=== PATIENT | male | born 1970 | race Caucasian/White ===

== ENCOUNTER 2017-12-03 17:53 | Inpatient (IN) | payer OTHER ==
[~2017-12-03] VITALS: Ht 185.4 cm; Wt 108.0 kg
[2017-12-03 21:48] VITALS: O2SAT 94; Ht 185.4 cm; Wt 108.0 kg
[2017-12-03 22:26] VITALS: BP 123/81; PULSE 100; TEMP 36.7; O2SAT 98
[2017-12-03] MEDS ORDERED: HYDROmorphone INJ 1 MG/ML SYR IV PRN (22:45)
[2017-12-03] MEDS ORDERED: VANCOMYCIN CONSULT ACTIVE PRN (23:00)
[2017-12-03] MEDS ORDERED: PATIENT'S ALLERGY INFO NEEDS ENTERED SCH (23:00)
[2017-12-03] MEDS ORDERED: PIPERACILL/TAZOBAC CONSULT ACTIVE PRN (23:00)
[2017-12-03] MEDS: NSS + 20MEQ KCL 1000ML 1,000 ML IV SCH (23:33)
[2017-12-03 23:37] VITALS: BP 147/86; PULSE 109; TEMP 36.4; O2SAT 99
--- NOTE | 2017-12-03 23:39 | History and Physical ---
History & Physical Date & Time of Service: Dec 03, 2017 at 23:39 Chief Complaint: Altered Mental Status Primary Care Physician: No Doctor, Assigned History of Present Illness Source: patient, hospital records Patient is a 47-year-old male with a significant past medical history of ADHD, anxiety, GERD, hypertension, hyperlipidemia, spinal stenosis, and tinnitus who presents to our facility [place] [facility] Per records that do voice, the patient underwent workup for altered mental status status post lumbar laminectomy with fusion performed 4 days ago at their facility by Dr. Mock. Patient reports that since his surgery he has had increasing pain in his lower back as well as to the LEFT hip. He reports that during his stay, his pain was ignored by multiple staff members and actually during one interaction, he contacted the ER to try and receive further care. I was unable to obtained prior records as to his admission during spinal surgery. Regardless, the patient had presented to the [facility] emergency department earlier today for increasing weakness, confusion, and worsening pain to the lumbar spine area. Per urgency department records, the patient presented afebrile. He was thought to be somewhat confused. He had a normal neurological exam per records. A CT of the head demonstrated a small LEFT frontal white matter hypodensity. CT of the abdomen was unremarkable. CT lumbar spine demonstrated no discerning fluid collections status post L4/5 fusion with L4 laminectomy. He had no leukocytosis. He was not overtly anemic. He had no significant electrolyte derangement. An ammonia level was well within normal limits. ABG was unremarkable. He was not hypoglycemic. Lactic acid was not elevated. Flu was negative. Urinalysis was unremarkable. Patient did have an elevated CRP of greater than 33. Cardiac indices and EKG were found to be unremarkable as well. Patient was placed on broad-spectrum antibiotics, specifically vancomycin and Zosyn while in the emergency department. There was apparently no beds at their facility so the patient was subsequently transferred to [facility] for further evaluation and management of altered mental status status post surgery. On evaluation in room 287-2, the patient is awake, alert, and oriented. He is complaining of pain in his low back. He reports that he has not eaten or drank much over the last few days as he has been very uncomfortable. He reports that he has had body aches and a subjective fever. He's had no cough or nasal congestion. There is been no vomiting or abdominal pain. He denies any loss of control bowel/bladder saddle anesthesia. The patient reports that he was informed that this was a "better hospital" and we should be able to take care of his pain and the "infection in my back". He offers no complaints of chest pain, palpitations, shortness of breath, pleuritic pain, hematuria, or dysuria. Patient denies any smoking or alcohol use. He denies any illicit drug use. He is currently unemployed and lives with family. Past Medical/Surgical History GERD ADHD Anxiety Hypertension Hyperlipidemia Spinal stenosis Tinnitus Status post laminectomy with fusion of the lumbar spine Family History Father: Lung Cancer Mother: Diabetes Mellitus, Hypertension Social History Smoking Status: Never Smoker Smokeless Tobacco Use: No Alcohol Use: none Drug Use: none Marital Status: Housing status: lives with family Occupational Status: unemployed Immunizations History of Influenza Vaccine: Unknown History of Tetanus Vaccine?: Unknown History of Pneumococcal: Unknown History of Hepatitis B Vaccine: Unknown Allergies Coded Allergies: Erythromycin (Verified Allergy, Mild, GI SYMPTOMS, 12/03/17) Omeprazole (Verified Allergy, Mild, GI SYMPTOMS, 12/03/17) Trazodone (Verified Allergy, Mild, GI SYMPTOMS, 12/03/17) Ziprasidone (Verified Allergy, Mild, GI SYMPTOMS, 12/03/17) Home Medications Scheduled Atorvastatin (Lipitor), 10 MG PO DAILY Gabapentin (Gabapentin), 300 MG PO TID Metoprolol Tartrate (Lopressor) (Lopressor), 100 MG PO BID Oxycodone HCl (Oxycodone HCl), 5-10 MG PO q4-6 Venlafaxine Hcl (Venlafaxine Extended Rel), 1 CAP PO DAILY Scheduled PRN Clonazepam (Klonopin), 1 MG PO BID PRN for Anxiety/Agitation Cyclobenzaprine Hcl (Flexeril), 1 TAB PO TID PRN for Muscle Spasms Ranitidine (Zantac), 300 MG PO DAILY PRN for Indigestion Review of Systems A complete 10-point Review of Systems was discussed with the patient, with pertinent positives and negatives listed in the History of Present Illness. All remaining Review of Systems questions can be considered negative unless otherwise specified. Physical Exam Vital Signs Date Time Temp Pulse Resp B/P (MAP) Pulse Ox O2 Delivery O2 Flow Rate FiO2 12/03/17 22:26 36.7 100 18 123/81 (95) 98 Room Air 12/03/17 21:48 94 Room Air VITAL SIGNS - Vital signs and nursing notes were reviewed. GENERAL - 47-year-old male appearing his stated age and in noticeable discomfort throughout the exam. SKIN - Without rashes. Surgical incision site noted to the midline of the lumbar spine. Mild serosanguineous drainage without purulence or blood noted. No surrounding erythema or ecchymosis noted on exam. Jasmyn intact. HEAD - NC/AT. EYES - PERRL with EOMI bilaterally. Sclera anicteric. Palpebral conjunctiva pink and moist with no injection noted. EARS - No deformities of external structures noted on gross examination bilaterally. No pain elicited with palpation of the tragus bilaterally. External auditory canals without discharge or otorrhea. Tympanic membranes pearly cotton without retraction or bulging. No fluid or purulent material visualized behind the TM. Handle of malleus, umbo, cone of light, pars tensa/ flaccid all easily visualized. NOSE - Midline and without cyanosis. No epistaxis or purulent drainage noted. Septum midline without deviation or septal hematoma noted. MOUTH/OROPHARYNX - Without perioral cyanosis. Buccal mucosa pink and moist and without leukoplakia. Tongue midline with equal elevation of palate bilaterally. NECK - Neck with FROM. Supple to palpation. No lymphadenopathy noted. No nuchal rigidity. ABDOMEN - Abdominal contour obese without pulsations or visible masses. BS normoactive all four quadrants. No tenderness, palpable masses, hepatosplenomegaly, or ascites noted. LUNGS - Chest wall symmetric without accessory muscle use, intercostals retractions, or central cyanosis. Normal vesicular breath sounds CTA B/L. No wheezes, rales, or rhonchi appreciated. CARDIAC - RRR with S1/S2. No murmur, rubs, or gallops appreciated. MUSCULOSKELETAL - Surgical incision site noted to the lumbar spine as described above. ROM of the lumbar spine region was limited secondary to patient discomfort. Pt was seated on the exam table. Pt made guarded movements when asked to change position. No step-off deformities were palpated down the thoracolumbar spines. Moderate Tenderness to Palpation experienced at the level of the lumbar spine and paraspinal muscle distribution. Moderate subjective reproducible tenderness to palpation across the iliac spine. SENSORY: Spinothalamic tract was found to be intact with ability to discriminate sharp versus dull sensation at the level of hip joint down do the great toe. No sensory defects of the dorsal column were appreciated utilizing light touch for evaluation. CEREBELLAR: Pt able to perform rapid alternating movements of the feet. EXTREMITIES - Range of Motion - No tremors, ticks, or fasciculations of the lower extremities noticed during inspection. Pt had +4/5 strength appreciated bilaterally in the lower extremities against examiner's resistance. VASCULAR - Capillary refill of the great toe was brisk. No mottling or blanching of the extremities present. +3/5 dorsalis pedis pulses palpated bilaterally. NEUROLOGIC - Cranial nerves II through XII grossly intact. Sensory intact to light touch throughout. PSYCH - A&Ox3 and cooperates fully with examiner. Pt is very pleasant and interacts well with examiner. Diagnostics Laboratory Results Results Past 24 Hours Test 12/03/17 22:32 12/03/17 23:22 Range/Units Microbiology Results 12/03/17 Blood Culture, Ordered Pending 12/03/17 Blood Culture, Ordered Pending Diagnostic Radiology Imaging reports [place] [facility] were reviewed by myself. Please see records. EKG From outside facility demonstrates normal sinus rhythm at a rate of 90 beats for minute. No acute ST or T-wave abnormalities noted. QTC 390 ms. Interpreted by myself. Normal EKG Impression Assessment and Plan (1) Low back pain (2) Anxiety (3) Altered mental status 47-year-old male presenting in transfer from [facility] for possible altered mental status, status post L4 laminectomy with L4-5 fusion. Concerns for postoperative infection as well as possible other contributing factors including CVA, drug ingestion, amongst others. Altered Mental Status: * Patient with essentially unremarkable workup at [facility]. Afebrile and presentation. Extensive evaluation including evaluation for sepsis and possible underlying postoperative infection. No acute findings noted. * Patient awake, alert, and oriented on presentation. * Fixated on pain control. * Will evaluate from a laboratory standpoint including metabolic sources nor other significant derangements. * CT of the head from outpatient facility does demonstrate a small area of white matter change on the LEFT frontal lobe. * Will evaluate further with MRI. * No focal neurological deficits on exam. * Awake, alert, and appropriate. * After evaluation, I did provide the patient with a one-time dose of Dilaudid intravenously for pain. During this assessment, the patient began to your health nurse and threatened to contact security. He reports that he did have pain medication in his bag which he was threatening to take. I was summoned to the room. At this point, I did explain to the patient that he would be provided pain medication, however threatening staff would not be tolerated. He was provided a one-time dose of Ativan 1 mg. He has when necessary pain medication. He will be provided Toradol and Tylenol [id number]. Post-Operative Lumbar Pain: * Status post L4 laminectomy with L4-5 fusion. * Oxycodone when necessary. * Scheduled Tylenol and Toradol. * In the setting of recent surgery with increasing pain, will cover for infection: * Vancomycin/Zosyn * Will assess with lumbar MRI for further evaluation of postoperative pain. * Will consult patient's surgeon for further evaluation. DVT Prophylaxis: * Lovenox BID. Attending addendum: I have physically seen this patient, have supervised the medical residents activities, and agree with the H&P unless as otherwise noted. Assessment and Plan: Altered mental status-- Patient referred from [facility]. Order MRI of brain as noted above has follow-up to findings on CT. Upon arrival at [facility] does not appear altered. His primary issue that he was concerned about was that of pain control regarding low back pain from recent lumbar surgery by performed at [facility]. We will consult his lumbar spine surgeon Dr. Mock We will consult neurology regarding mental status. Pain management as noted above Advanced Directives Existing Living Will: No Existing Power of Modeler: No Resuscitation Status FULL RESUSCITATION VTE Prophylaxis VTE Risk Assessment Done? Y/N: Yes Risk Level: Moderate Given or contraindicated: Enoxaparin (Lovenox)SQ Problem Qualifiers (1) Low back pain: Chronicity: acute
[2017-12-03 23:55] LABS: BASO % 0.2 %; BASO ABS # 0.01 K/uL (0-0.2); EOS ABS # 0.18 K/uL (0-0.5); HEMATOCRIT 30.7 % (42-52); HEMOGLOBIN 10.3 g/dL (14.0-18.0); IG# 0.09 K/uL (0.00-0.02); LYMPH ABS # 1.46 K/uL (1.2-3.4); MEAN CELL VOLUME 84.1 fL (80-100); MEAN CORPUSCULAR HEMOGLOBIN 28.2 pg (25-34); MEAN CORPUSCULAR HGB CONC 33.6 g/dl (32-36); MEAN PLATELET VOLUME 9.2 fL (7.4-10.4); MONO % 7.9 %; MONO ABS # 0.48 K/uL (0.11-0.59); NEUT % 63.4 %; NEUT ABS # 3.86 K/uL (1.4-6.5); PLATELET COUNT 172 K/uL (130-400); RED CELL DISTRIBUTION WIDTH CV 13.8 % (11.5-14.5); RED CELL DISTRIBUTION WIDTH SD 42.4 fL (36.4-46.3); WHITE BLOOD COUNT 6.08 K/uL (4.8-10.8)
[2017-12-03] MEDS ORDERED: HYDROmorphone INJ 1 MG/ML SYR ONE (23:57)
[2017-12-04] MEDS ORDERED: OXYCODONE HCL IR 5 MG TAB (IMMEDIATE RELEASE) PO PRN
[2017-12-04] MEDS ORDERED: PIPERACILL/TAZOBAC IV 3.375 GM in DEXTROSE 5% 100ML IV ONE (00:15)
[2017-12-04 00:16] LABS: ALBUMIN 2.6 gm/dl (3.4-5.0); CALCIUM 8.5 mg/dl (8.5-10.1); CREATININE 0.69 mg/dl (0.60-1.40); POTASSIUM 3.8 mmol/L (3.5-5.1)
[2017-12-04 00:25] LABS: PHOSPHORUS 2.7 mg/dl (2.5-4.9); TOTAL PROTEIN 6.9 gm/dl (6.4-8.2)
[2017-12-04] MEDS ORDERED: VANCOMYCIN INJ 2,500 MG in SODIUM CHLORIDE 0.9% 500ML 500 ML IV SCH (00:30)
[2017-12-04] MEDS ORDERED: LORAZEPAM INJ 1 MG in SYRINGE 0.5 ML IV STA (00:33)
[2017-12-04] MEDS ORDERED: LORAZEPAM 2 MG/ML 1 ML VIAL ONE (00:38)
[2017-12-04] MEDS: KETOROLAC TROMETHAMINE 30 MG/ML VIAL IV PRN ×3 (00:44→17:55)
[2017-12-04 04:03] VITALS: BP 115/60; PULSE 114; TEMP 36.5; O2SAT 98
[2017-12-04 04:06] LABS: INFLUENZA A PCR Neg for Influ A (NEG); INFLUENZA B PCR Neg for Influ B (NEG)
[2017-12-04] MEDS: ACETAMINOPHEN 325 MG TAB PO PRN (05:39)
[2017-12-04] MEDS ORDERED: PIPERACILL/TAZOBAC IV 3.375 GM in DEXTROSE 5% 100ML IV SCH (06:00)
[2017-12-04] MEDS ORDERED: PIPERACILL/TAZOBAC IV 3.375 GM in DEXTROSE 5% 100ML 100 ML IV SCH (06:00)
[2017-12-04 07:46] VITALS: BP 153/82; PULSE 119; TEMP 36.6; O2SAT 92
[2017-12-04] MEDS ORDERED: VANCOMYCIN INJ 1,750 MG in SODIUM CHLORIDE 0.9% 500ML 500 ML IV SCH ×2 (08:00→16:00)
[2017-12-04] MEDS ORDERED: VANCOMYCIN INJ 1,000 MG in SODIUM CHLORIDE 0.9% 250ML 250 ML IV SCH (09:00)
[2017-12-04] MEDS ORDERED: ENOXAPARIN 30 MG/0.3 ML SYR SQ SCH (09:00)
[2017-12-04 09:57] LABS: INR 0.9 (0.9-1.1)
[2017-12-04] MEDS ORDERED: CYCL10TA6 PO (09:57)
[2017-12-04] MEDS ORDERED: LPT10 PO (09:57)
[2017-12-04] MEDS ORDERED: CLON1TAB3 PO (09:57)
[2017-12-04] MEDS ORDERED: METO100T44 PO (10:02)
[2017-12-04] MEDS ORDERED: LISI40TA PO (10:02)
[2017-12-04] MEDS ORDERED: METO100T14 PO ×2 (10:02→10:34)
[2017-12-04] MEDS ORDERED: VENL75CA73 PO (10:02)
[2017-12-04] MEDS ORDERED: RANI300T2 PO (10:02)
[2017-12-04] MEDS: ONDANSETRON INJ 2 MG/ML 2 ML VIAL IV PRN (10:06)
--- NOTE | 2017-12-04 10:19 | Neurology Consultation ---
Neurology Consultation Date of Consultation: Dec 04, 2017. Attending Physician: Jossy Lizarraga MD Primary Care Physician: No Doctor, Assigned Reason for Consultation: Patient is a 47-year-old, who was asked to see the request of Dr. Lizarraga, for neurologic consultation regarding abnormal CT scan of the head plus altered mental status 4 days post lumbar spine surgery. History of Present Illness Source: patient, caregiver, hospital records Patient tells me that he has had low back pain since childhood. He did, however , participated in sports in school and he went to the spending 8 years in the [employer]. He he had to be discharged for medical reasons ( had chronic low back pain) in his early 30s. He is from [place] but moved here about 2 years ago. 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 He was having pain down the backs of both legs bilaterally as well as having chronic low back pain. On November 29, 2017 the patient underwent lumbar laminectomy and L4-5 disc removal with fusion by Dr. Mock at [facility]. Patient cannot remember how long he stayed in the hospital but thinks he stayed overnight and was discharged. He was having significant low back pain with bilateral hip pain. He went to the emergency room at [place] on December 03. While in their emergency room, a CT scan of the head apparently showed a very small left frontal hypodensity and a punctate old left thalamic hypodensity. CT scan of the abdomen and pelvis was unremarkable but the lumbar spine showed postop changes but no fluid levels or any stating suggestive of acute infection. Since they did not have any bed for admission, he was transferred to [facility]. At 2226 hours on December 03, temperature was 36.7, pulse 100, respiratory rate 18, blood pressure 123/81, and O2 saturation 98 percent. He he had complaints of intense low back pain to the hips. Neurologic examination did not show any focal or significant findings. He was afebrile and had no meningeal signs. He was in pain and may have had some confusion. CBC showed some anemia. Chem profile showed a sodium of 134 and AST of 50 for a C-reactive protein of 22. Urinalysis was unremarkable for infection but was positive for opiates. This morning, the patient says that his back has considerable pain into his hips and that "no one was doing anything for him". I informed him that he had 1 milligram of Dilaudid, 1 milligram of Ativan IV, 2 doses of 30 milligrams Toradol overnight and 5 milligrams of oxycodone at 0445 hours. He denies new weakness or numbness of his arms or legs but he does have some generalized sense of weakness proximally in the legs. He feels it is difficult to stand but this really makes his back her worse. He has no pain in his arms or neck and has no radicular pain in his legs. He has no incontinence of urine, speech, vision, or chest pain. He does have some nausea. To his knowledge the patient has never had a stroke. He has had a couple of concussions in the past without loss of consciousness most recent being through 4 years ago. Past Medical/Surgical History Medical Problems: (1) Altered mental status Status: Acute (2) Anxiety Status: Chronic (3) Low back pain Status: Acute ADHD and anxiety Gastroesophageal reflux disease Hypertension recently Dyslipidemia Tinnitus Post 5 hernia surgeries, 2 left inguinal, 2 right inguinal, and 1 umbilical Post right elbow ulnar nerve transposition surgery with a follow-up surgery of uncertain type at that elbow Post cholecystectomy Family History Mother is alive at age 71 and has hypertension and diabetes. Father age 69 of lung cancer Social History The patient never has used cigarettes. He will occasionally use chewing tobacco but not for several years now. Patient was a heavy alcohol user at times in the past but he stopped alcohol in his early 40s. He has been unemployed/disabled. Smoking Status: Never smoker Smokeless Tobacco Use: No Alcohol Use: none Drug Use: none Marital Status: Housing Status: lives with family Occupation Status: unemployed Allergies Coded Allergies: Erythromycin (Verified Allergy, Mild, GI SYMPTOMS, 12/03/17) Omeprazole (Verified Allergy, Mild, GI SYMPTOMS, 12/03/17) Trazodone (Verified Allergy, Mild, GI SYMPTOMS, 12/03/17) Ziprasidone (Verified Allergy, Mild, GI SYMPTOMS, 12/03/17) Current Inpatient Medications Current Inpatient Medications Medications (Trade) Dose Ordered Sig/Sanjiv Route Start Time Stop Time Status Last Admin Dose Admin Enoxaparin Sodium (Lovenox Inj) 30 mg Q12 SQ 12/04/17 09:00 01/03/18 08:59 UNV Acetaminophen (Tylenol Tab) 650 mg Q4H PRN PO 12/03/17 22:45 01/02/18 22:44 12/04/17 05:39 650 MG Ondansetron HCl (Zofran Inj) 4 mg Q6H PRN IV 12/03/17 22:45 01/02/18 22:44 Ketorolac Tromethamine (Toradol Inj) 30 mg Q6H PRN IV 12/03/17 22:45 12/08/17 22:44 12/04/17 06:36 30 MG Miscellaneous Information (Consult) 1 ea UD PRN N/A 12/03/17 23:00 01/02/18 22:59 Miscellaneous Information (Consult) 1 ea UD PRN N/A 12/03/17 23:00 01/02/18 22:59 Potassium Chloride/Sodium Chloride 1,000 ml @ 75 mls/hr [id number] IV 12/03/17 23:00 01/02/18 22:59 12/03/17 23:33 75 MLS/HR Oxycodone HCl (Roxicodone Immediate Rel Tab) 5 mg Q6 PRN PO 12/04/17 00:00 12/18/17 00:00 12/04/17 04:43 5 MG Piperacillin Sod/ Tazobactam Sod 3.375 gm/Dextrose 115 ml @ 28.75 mls/ hr Q8H IV 12/04/17 06:00 12/14/17 05:59 12/04/17 05:41 28.75 MLS/HR Vancomycin HCl 1750 mg/Sodium Chloride 535 ml @ 200 mls/hr Q6H IV 12/04/17 08:00 12/14/17 07:59 12/04/17 08:32 200 MLS/HR Review of Systems Constitutional: + weakness, + fatigue, No fever Eyes: No worsening of vision, No diplopia ENT: + tinnitus, No sore throat, No trouble swallowing Respiratory: No cough, No shortness of breath Cardiovascular: No chest pain, No palpitations Abdomen: + nausea, No pain Musculoskeletal: No joint pain, No muscle pain Genitourinary - Male: No dysuria, No urinary incontinence Neurologic: + weakness, No memory loss, No numbness/tingling, No vertigo, No balance problems Psychiatric: + depression symptoms, + anxiety Endocrine: + fatigue Hematologic / Lymphatic: No abnormal bleeding/bruising Integumentary: No rash Allergic / Immunologic: No hives Physical Exam Vital Signs (Past 24 Hrs): Date Time Temp Pulse Resp B/P (MAP) Pulse Ox O2 Delivery O2 Flow Rate FiO2 12/04/17 08:00 Room Air 12/04/17 07:46 36.6 119 18 153/82 (105) 92 12/04/17 04:03 36.5 114 18 115/60 (78) 98 Room Air 12/04/17 04:00 Room Air 12/04/17 00:00 Room Air 12/03/17 23:37 36.4 109 20 147/86 (106) 99 Room Air 12/03/17 22:26 36.7 100 18 123/81 (95) 98 Room Air 12/03/17 21:48 94 Room Air Patient is right-handed. The patient is awake and alert. Speech is normal without aphasia or dysarthria. Mentation and thought processes are intact with orientation and normal fund of knowledge. Mood is down and he is very anxious because of his pain. Appearance and grooming are normal. Long and short-term memory reasonable to conversation particularly when pressed. The discs are sharp with positive venous pulsations. There are no exudates, hemorrhages, or blood vessel changes seen. Pupils are 4mm bilaterally and reactive to light. Extraocular eye muscles are intact without nystagmus. Visual acuity and visual ramos seem normal grossly to confrontation. There are no deficits to sensation of the face bilaterally. Corneal reflexes are positive bilaterally. Facial strength and symmetry is normal bilaterally. Hearing seems intact grossly to voice and finger rub. Palate moves well without asymmetry. There is normal sternocleidomastoid and trapezius strength bilaterally. Tongue is midline with good strength bilaterally. Neck is with full range of motion without discomfort. There are no cervical bruits. There are no cranial or ocular bruits. Heart is without murmur. Cervical, thoracic, and lumbar spine are nontender to palpation. Gait is not tested secondary to back pain but stance sitting up in bed with legs dangling is normal. With outstretched arms there is no drift. There are no resting, postural, or action tremors. There is no ataxia with [id number] testing. There is good facility in the hands. There are no abnormal involuntary movements noted. Motor strength is 5/5 diffusely in the arms bilaterally including deltoids, biceps, brachioradialis, wrist flexors and extensors, wire drawer, and intrinsic hand muscles. Motor strength is 5/5 diffusely in the legs bilaterally including hip flexors, quadriceps, hamstring, gastrocnemius, tibialis anterior, tibialis posterior, and peroneii muscles bilaterally. Toe extensors are normal and there is good bulk in the extensor digitorum brevis muscle bilaterally. The limbs have good tone without rigidity or spasticity, and there is no atrophy noted. Muscle bulk is normal, there is no tenderness, no myotonia noted to percussion, and no fasciculations seen. Sensory examination is intact to pin and touch throughout all four limbs. Reflexes are 2/4 in the biceps, triceps, brachioradialis, quadriceps, and Achilles tendons bilaterally. Toes are downgoing with plantar stimulation bilaterally. Peripheral pulses are present and of normal quality distally in all four limbs. There is no peripheral edema noted. Laboratory Results Past 24 Hours: 12/03/17 23:22 Red Blood Count 3.65, Mean Corpuscular Volume 84.1, Mean Corpuscular Hemoglobin 28.2, Mean Corpuscular Hemoglobin Concent 33.6, Mean Platelet Volume 9.2, Neutrophils (%) (Auto) 63.4, Lymphocytes (%) (Auto) 24.0, Monocytes (%) (Auto) 7.9, Eosinophils (%) (Auto) 3.0, Basophils (%) (Auto) 0.2, Neutrophils # (Auto) 3.86, Lymphocytes # (Auto) 1.46, Monocytes # (Auto) 0.48, Eosinophils # (Auto) 0.18, Basophils # (Auto) 0.01 12/03/17 23:22 Test 12/03/17 23:22 12/04/17 00:00 12/04/17 05:30 12/04/17 09:04 White Blood Count 6.08 K/uL (4.8-10.8) Red Blood Count 3.65 M/uL (4.7-6.1) Hemoglobin 10.3 g/dL (14.0-18.0) Hematocrit 30.7 % (42-52) Mean Corpuscular Volume 84.1 fL (80-100) Mean Corpuscular Hemoglobin 28.2 pg (25-34) Mean Corpuscular Hemoglobin Concent 33.6 g/dl (32-36) Platelet Count 172 K/uL (130-400) Mean Platelet Volume 9.2 fL (7.4-10.4) Neutrophils (%) (Auto) 63.4 % Lymphocytes (%) (Auto) 24.0 % Monocytes (%) (Auto) 7.9 % Eosinophils (%) (Auto) 3.0 % Basophils (%) (Auto) 0.2 % Neutrophils # (Auto) 3.86 K/uL (1.4-6.5) Lymphocytes # (Auto) 1.46 K/uL (1.2-3.4) Monocytes # (Auto) 0.48 K/uL (0.11-0.59) Eosinophils # (Auto) 0.18 K/uL (0-0.5) Basophils # (Auto) 0.01 K/uL (0-0.2) RDW Standard Deviation 42.4 fL (36.4-46.3) RDW Coefficient of Variation 13.8 % (11.5-14.5) Immature Granulocyte % (Auto) 1.5 % Immature Granulocyte # (Auto) 0.09 K/uL (0.00-0.02) Anion Gap 6.0 mmol/L (3-11) Est Creatinine Clear Calc Drug Dose 173.5 ml/min Estimated GFR () 132.9 Estimated GFR (Non- 114.7 BUN/Creatinine Ratio 20.7 (10-20) Lactic Acid Level 0.8 mmol/L (0.4-2.0) Calcium Level 8.5 mg/dl (8.5-10.1) Phosphorus Level 2.7 mg/dl (2.5-4.9) Magnesium Level 2.1 mg/dl (1.8-2.4) Total Bilirubin 0.9 mg/dl (0.2-1) Direct Bilirubin 0.3 mg/dl (0-0.2) Aspartate Amino Transf (AST/SGOT) 54 U/L (15-37) Alanine Aminotransferase (ALT/SGPT) 48 U/L (12-78) Alkaline Phosphatase 94 U/L (45-117) C-Reactive Protein 24.30 mg/dl (0-0.29) Total Protein 6.9 gm/dl (6.4-8.2) Albumin 2.6 gm/dl (3.4-5.0) Procalcitonin 0.22 ng/ml (0-0.5) Influenza Type A (RT-PCR) Neg for Influ A (NEG) Influenza Type B (RT-PCR) Neg for Influ B (NEG) Urine Color DK YELLOW Urine Appearance CLEAR (CLEAR) Urine pH 5.5 (4.5-7.5) Urine Specific [place] 1.037 (1.000-1.030) Urine Protein NEG (NEG) Urine Glucose (UA) NEG (NEG) Urine Ketones 2+ (NEG) Urine Occult Blood NEG (NEG) Urine Nitrite NEG (NEG) Urine Bilirubin NEG (NEG) Urine Urobilinogen NEG (NEG) Urine Leukocyte Esterase NEG (NEG) Urine Opiates Screen POS (NEG) Urine Methadone, Qualitative NEG (NEG) Urine Barbiturates NEG (NEG) Urine Phencyclidine (PCP) Level NEG (NEG) Ur Amphetamine/Methamphetamine NEG (NEG) MDMA (Ecstasy) Screen NEG (NEG) Urine Benzodiazepines Screen NEG (NEG) Urine Cocaine Metabolite NEG (NEG) Urine Marijuana (THC) NEG (NEG) Prothrombin Time 9.5 SECONDS (9.0-12.0) Prothromb Time International Ratio 0.9 (0.9-1.1) Impression 1. Acute low back pain post L4-5 diskectomy with fusion November 29. The pain radiates to his hips but is not radicular into the legs. He has no other significant neurologic deficit in his legs, including no weakness, numbness, or reflex changes. Visually, the low back surgical scar looks clean and healing and he has no tenderness to palpation in the paraspinal muscles bilaterally. A CT scan yesterday did not show any lumbar spine area changes consistent with infection. 2. Acute encephalopathy I am not convinced this patient has any residual encephalopathy present. He does have high anxiety but when pressed (and calmed down) seems to have good responses and memory. 3. Anxiety on venlafaxine 75 milligram long-acting once daily. His anxiety is significant. He also carries a diagnosis of ADHD 4. Abnormal CT scan of the head with small left frontal and tiny left thalamic hypodensities of uncertain etiology He has no history of stroke although he has some risk factors with a history of hypertension and dyslipidemia He has no focal abnormalities on exam referable to the central nervous system. Plan 1. Agree with MRI of the brain to further evaluate the lesion seen on CT scan 2. MRI of the lumbar spine to see if there is any indication of infection or other abnormalities that would cause his acute postop pain. 3. Increase venlafaxine to 150 milligram XR daily 4. Physical and occupational therapy consult 5. Pain control with combination medicines including judicious doses of narcotics, Toradol, and benzodiazepines. Overall, I spent a total of 75 minutes with this case including records review, direct evaluation and conversations with the patient and discussion with Dr. Lizarraga and clinical staff caring for the patient.
[2017-12-04] MEDS ORDERED: VENLAFAXINE HCL XR 75 MG CAPXR PO ONE (10:25)
[2017-12-04] MEDS ORDERED: RXC5 PO (10:34)
[2017-12-04] MEDS ORDERED: NRN300 PO (10:34)
[2017-12-04] MEDS ORDERED: NALOXONE HCL 0.4 MG/1 ML VIAL/CARP IV PRN (10:45)
[2017-12-04] MEDS: HYDROmorphone INJ 0.5 MG/0.5 ML SYR IV PRN ×2 (10:47→15:33)
--- NOTE | 2017-12-04 10:55 | Pharmacy Progress Note ---
Pharmacy Abx Dose Short Note Date of Service Dec 04, 2017. Assessment & Plan Assessment 47 year old male receiving VANC/ZOSYN for treatment of possible infection s/p recent lumbar surgery. [place] [facility] Day # 1 of antimicrobial therapy. Plan Vancomycin * Estimated p'kinetics: Vd0.7L/kg, Ke~0.104hr-1, t1/2~7hrs * LOAD: VANC 2500mg (25mg/kg) x 1 * MAINTENANCE dose: VANC 1750mg (~17mg/kg) IV every 8 hours * Goal trough level: ~15 mcg/mL * Trough level ordered @[facility] prior to 12/05/17 0000 dose Pharmacy will continue to follow and will adjust dose/frequency as necessary. Thank you.
[2017-12-04] MEDS ORDERED: DOCUSATE SODIUM/SENNA 50/8.6MG TAB PO ONE (11:00)
--- NOTE | 2017-12-04 11:01 | Hospitalist Progress Note ---
Hospitalist Progress Note Date of Service Dec 04, 2017. Subjective Pt evaluation today including: conversation w/ patient, conversation w/ family (Cousin on the phone with patient's permission), conversation w/ industrial rehabilitation consultant ( Neurology, orthopedic spine surgery) Patient was admitted overnight with severe lower back pain and altered mental status as a transfer from [facility]. He had lumbar decompression and fusion [address] Mock. There was concern for possible infection as he was reporting subjective fevers. Review of the records from there did show 1 rectal temperature of 38.0, but otherwise temperatures here have been normal. He had no elevated white blood cell count. His CRP is elevated but he did have recent surgery. His cousin that I spoke with on the phone is concerned that he has been overmedicating with pain medicine at home including oxycodone, tramadol that he had from previous, he was also started on gabapentin recently, and is on clonazepam at home. She also reports that he is a former alcoholic but she is fairly certain he has not had a drink in over 1 month. The patient is crying and has been agitated with nurses since admission, claiming that no one is treating his pain. He complains of severe pain in the left buttocks and hip region. There is no pain radiating down the legs, no weakness. He denies chest pain or shortness of breath, he has not been hypoxic , and denies cough. He has not had a bowel movement in 4 or 5 days he thinks. The patient is also reporting nausea currently. He thinks maybe he vomited a couple days ago. He does occasionally say things that do not make sense such as "my cousin is always name tagging people," but it seems that he is referring to the fact that his cousin is helping him make arrangements with appointments. All Other Systems: Reviewed and Negative Objective Vital Signs Date Time Temp Pulse Resp B/P (MAP) Pulse Ox O2 Delivery O2 Flow Rate FiO2 12/04/17 08:00 Room Air 12/04/17 07:46 36.6 119 18 153/82 (105) 92 12/04/17 04:03 36.5 114 18 115/60 (78) 98 Room Air 12/04/17 04:00 Room Air 12/04/17 00:00 Room Air 12/03/17 23:37 36.4 109 20 147/86 (106) 99 Room Air 12/03/17 22:26 36.7 100 18 123/81 (95) 98 Room Air 12/03/17 21:48 94 Room Air Physical Exam General Appearance: WD/WN, + mild distress (Tearful, crying out in pain when he sits up to the side of the bed) Eyes: normal inspection, PERRL, EOMI, sclerae normal ENT: hearing grossly normal Neck: trachea midline Respiratory/Chest: lungs clear, normal breath sounds, no respiratory distress, no accessory muscle use Cardiovascular: no edema, no gallop, no JVD, no murmur, + tachycardia (With regular rhythm) Abdomen: normal bowel sounds, non tender, soft, no organomegaly Extremities: non-tender, normal inspection, no pedal edema, no calf tenderness , + pertinent finding (No tenderness to palpation over the left buttocks and hip area, no tenderness to palpation around the lumbar incision) Neurologic/Psychiatric: no motor/sensory deficits, alert, + pertinent finding ( Tearful and anxious as above with flat affect) Skin: normal color, warm/dry, + pertinent finding (Incision in the lower spine with estefany in place with very mild serous drainage from the mid incision, no surrounding erythema) Laboratory Results Last 24 Hours Test 12/03/17 23:22 12/04/17 00:00 12/04/17 05:30 12/04/17 09:04 White Blood Count 6.08 K/uL Red Blood Count 3.65 M/uL Hemoglobin 10.3 g/dL Hematocrit 30.7 % Mean Corpuscular Volume 84.1 fL Mean Corpuscular Hemoglobin 28.2 pg Mean Corpuscular Hemoglobin Concent 33.6 g/dl Platelet Count 172 K/uL Mean Platelet Volume 9.2 fL Neutrophils (%) (Auto) 63.4 % Lymphocytes (%) (Auto) 24.0 % Monocytes (%) (Auto) 7.9 % Eosinophils (%) (Auto) 3.0 % Basophils (%) (Auto) 0.2 % Neutrophils # (Auto) 3.86 K/uL Lymphocytes # (Auto) 1.46 K/uL Monocytes # (Auto) 0.48 K/uL Eosinophils # (Auto) 0.18 K/uL Basophils # (Auto) 0.01 K/uL RDW Standard Deviation 42.4 fL RDW Coefficient of Variation 13.8 % Immature Granulocyte % (Auto) 1.5 % Immature Granulocyte # (Auto) 0.09 K/uL Sodium Level 134 mmol/L Potassium Level 3.8 mmol/L Chloride Level 101 mmol/L Carbon Dioxide Level 27 mmol/L Anion Gap 6.0 mmol/L Blood Urea Nitrogen 14 mg/dl Creatinine 0.69 mg/dl Est Creatinine Clear Calc Drug Dose 173.5 ml/min Estimated GFR () 132.9 Estimated GFR (Non- 114.7 BUN/Creatinine Ratio 20.7 Random Glucose 90 mg/dl Lactic Acid Level 0.8 mmol/L Calcium Level 8.5 mg/dl Phosphorus Level 2.7 mg/dl Magnesium Level 2.1 mg/dl Total Bilirubin 0.9 mg/dl Direct Bilirubin 0.3 mg/dl Aspartate Amino Transf (AST/SGOT) 54 U/L Alanine Aminotransferase (ALT/SGPT) 48 U/L Alkaline Phosphatase 94 U/L C-Reactive Protein 24.30 mg/dl Total Protein 6.9 gm/dl Albumin 2.6 gm/dl Procalcitonin 0.22 ng/ml Influenza Type A (RT-PCR) Neg for Influ A Influenza Type B (RT-PCR) Neg for Influ B Urine Color DK YELLOW Urine Appearance CLEAR Urine pH 5.5 Urine Specific [place] 1.037 Urine Protein NEG Urine Glucose (UA) NEG Urine Ketones 2+ Urine Occult Blood NEG Urine Nitrite NEG Urine Bilirubin NEG Urine Urobilinogen NEG Urine Leukocyte Esterase NEG Urine Opiates Screen POS Urine Methadone, Qualitative NEG Urine Barbiturates NEG Urine Phencyclidine (PCP) Level NEG Ur Amphetamine/Methamphetamine NEG MDMA (Ecstasy) Screen NEG Urine Benzodiazepines Screen NEG Urine Cocaine Metabolite NEG Urine Marijuana (THC) NEG Prothrombin Time 9.5 SECONDS Prothromb Time International Ratio 0.9 Assessment and Plan This patient is a 47-year-old male presenting in transfer [place] [facility] for acute encephalopathy, status post L4 laminectomy with L4-5 fusion on 11/29. Acute encephalopathy: Concerns for postoperative infection due to subjective fevers and one rectal temp of 38.0 in the ER and there. He was started on Zosyn and vancomycin and transferred here. CT of the head there showed some hypodensities in the frontal lobe and thalamus-etiology of encephalopathy includes CVA, drug ingestion/overdose of opioids, and infection, as well as pain and/or constipation. He was given Narcan with good response as per the cousin in the ER. He has not had any further fever here. That low-grade temp could have been from atelectasis. Lactate, pro calcitonin both negative. I discussed the case with his orthopedic spine surgeon. -He is also on clonazepam at home as needed and his cousin reports the bottle seems fairly full-unlikely that he is overdosed on this, but he could be withdrawing from this if it was not given during last hospitalization after his surgery. He is a former alcoholic but has not had a drink in over a month * Fixated on pain control-will attempt to control pain as this could help with his agitation-add low-dose of Dilaudid 0.5 mg IV every 3 hours as needed, oxycodone 5 mg p.o. as needed. Will hold off on home Flexeril and gabapentin. Narcan as needed if becomes excessively sedated * CT of the head from outpatient facility does demonstrate a small area of white matter change on the LEFT frontal lobe. * Will evaluate further with MRI brain without contrast -Orthopedic spine recommends not getting MRI of the lumbar spine as it will likely show a postop seroma and inflammatory changes and will not help delineate anything as far as infection source. He remains afebrile, no leukocytosis, no signs of infection at the wound site-will stop antibiotics and observe -Check chest x-ray to rule out pneumonia or aspiration pneumonitis -Follow CBC, electrolytes, and CRP Post-Operative Lumbar Pain: * Status post L4 laminectomy with L4-5 fusion. * Oxycodone when necessary, IV Dilaudid as needed as above. * Scheduled Tylenol and Toradol. * Will consult patient's surgeon for further evaluation. Hypertension-patient with mild tachycardia secondary to pain and likely beta- serg withdrawal -Restart home metoprolol tartrate 100 mg p.o. twice daily -Monitoring on telemetry Depression/history of TBI/anxiety/history of alcoholism-exacerbated by current situation with pain -Increase Effexor to 150 mg p.o. daily as per neurology recommendations which can also have a TCA-like effect for his pain -Continue clonazepam 1 mg p.o. twice daily as needed anxiety -Observe for withdrawal symptoms from alcohol -Consider psychiatry consult as needed DVT Prophylaxis: * Discussed with orthopedic spine surgeon-he is okay with starting heparin subcutaneously for DVT prophylaxis Disposition-PT/OT consult and may need rehab placement-orin is requesting this
[2017-12-04] MEDS ORDERED: VENLAFAXINE HCL XR 75 MG CAPXR PO STA (11:03)
[2017-12-04] MEDS: NSS + 20MEQ KCL 1000ML 1,000 ML IV SCH (11:14)
[2017-12-04] MEDS ORDERED: METOPROLOL TARTRATE 100 MG TAB PO ONE (11:15)
[2017-12-04] MEDS ORDERED: HEPARIN SOD 5000 UNIT/0.5 ML CARP SQ ONE (11:15)
[2017-12-04] MEDS ORDERED: BISACODYL 10 MG SUPP PR STA (11:34)
[2017-12-04] MEDS ORDERED: SOD PHOSPHATE/SOD BIPHOSPHATE ENEMA 132 ML BTL PR PRN (11:45)
[2017-12-04] MEDS: OXYCODONE HCL IR 5 MG TAB (IMMEDIATE RELEASE) PO PRN ×2 (12:00→23:19)
[2017-12-04] MEDS: CLONAZEPAM 1 MG TAB PO PRN (12:00)
[2017-12-04 12:22] VITALS: BP 167/108; PULSE 118; TEMP 36.4; O2SAT 100
--- NOTE | 2017-12-04 14:07 | DIAGNOSTIC IMAGING REPORT ---
CHEST ONE VIEW PORTABLE CLINICAL HISTORY: 47 years-old Male presenting with confusion,recent surgery. TECHNIQUE: Portable upright AP view of the chest was obtained. COMPARISON: 12/03/2017. FINDINGS: Cardiomediastinal silhouette normal. Mildly low lung volumes with hypoventilatory changes. No focal opacity. No large effusion or pneumothorax. Calcified granuloma may be present at the left lung base. Upper abdomen normal. IMPRESSION: 1. Mildly low lung volumes with hypoventilatory changes. No convincing evidence of acute cardiopulmonary disease. Electronically signed by: Gary Ferreira M.D. 12/04/2017 2:06 PM Dictated Date/Time: 12/04/2017 2:05 PM
[2017-12-04 15:52] VITALS: BP 150/87; PULSE 97; TEMP 37.1; O2SAT 100
[2017-12-04] MEDS: RANITIDINE HCL 150 MG TAB PO PRN (16:00)
--- NOTE | 2017-12-04 16:48 | DIAGNOSTIC IMAGING REPORT ---
ORBITS FOR MRI CLINICAL HISTORY: 47 years-old Male presenting with h/o metal in eye. TECHNIQUE: 3 views of the orbits were obtained. COMPARISON: None. FINDINGS: No radiopaque intraorbital foreign body. Bony orbits grossly intact. Paranasal sinuses grossly clear. Visualized portion of the calvarium intact. IMPRESSION: No intraorbital metallic foreign body to preclude MRI exam. Electronically signed by: Gary Ferreira M.D. 12/04/2017 4:47 PM Dictated Date/Time: 12/04/2017 4:47 PM
--- NOTE | 2017-12-04 17:42 | DIAGNOSTIC IMAGING REPORT ---
BRAIN WITHOUT CONTRAST CLINICAL HISTORY: 47 years-old Male presenting with r/o CVA, confusion. TECHNIQUE: Multisequence, multiplanar MR imaging of the brain was performed without the use of intravenous contrast. IV contrast: None. COMPARISON: None. FINDINGS: Ventricles and sulci normal in size. Limited T2/FLAIR hyperintensity within subcortical white matter of the left frontal lobe. No associated restricted diffusion. No mass effect or midline shift. No restricted diffusion to suggest acute ischemia. No hemorrhage. No extra-axial fluid collection. T2 skull base flow voids preserved. Bone marrow signal intensity within the calvarium within normal limits. IMPRESSION: 1. Limited signal abnormality in the subcortical white matter of the left frontal lobe, which is nonspecific and could be seen in the setting of age-related change, chronic migraines, or early chronic small vessel ischemic change among other etiologies. No convincing evidence of acute intracranial abnormality. Specifically, no evidence of infarct or hemorrhage. Electronically signed by: Gary Ferreira M.D. 12/04/2017 5:41 PM Dictated Date/Time: 12/04/2017 5:38 PM
[2017-12-04] MEDS ORDERED: VANCOMYCIN TROUGH ONE ×2 (19:30→23:30)
[2017-12-04 19:36] VITALS: BP 125/79; PULSE 93; TEMP 37.1; O2SAT 91
[2017-12-04] MEDS ORDERED: DOCUSATE SODIUM/SENNA 50/8.6MG TAB PO SCH (21:00)
[2017-12-04] MEDS: METOPROLOL TARTRATE 100 MG TAB PO SCH (21:32)
[2017-12-04] MEDS: DOCUSATE SODIUM/SENNA 50/8.6MG TAB PO SCH (21:32)
[2017-12-04] MEDS: HEPARIN SOD 5000 UNIT/0.5 ML CARP SQ SCH (21:35)
[2017-12-05] VITALS (8 sets, daily range): BP systolic 104–143; BP diastolic 67–89; PULSE 83–99; TEMP 36.4–37.3; O2SAT 97–100
[2017-12-05] MEDS: NSS + 20MEQ KCL 1000ML 1,000 ML IV SCH ×2 (03:18→18:35)
[2017-12-05] MEDS: HYDROmorphone INJ 0.5 MG/0.5 ML SYR IV PRN ×2 (04:49→11:21)
[2017-12-05] MEDS: RANITIDINE HCL 150 MG TAB PO PRN (05:03)
[2017-12-05] MEDS: ACETAMINOPHEN 325 MG TAB PO PRN (05:07)
[2017-12-05 07:17] LABS: BASO % 0.2 %; BASO ABS # 0.01 K/uL (0-0.2); EOS % 2.8 %; EOS ABS # 0.15 K/uL (0-0.5); HEMATOCRIT 28.2 % (42-52); HEMOGLOBIN 9.7 g/dL (14.0-18.0); IG# 0.07 K/uL (0.00-0.02); LYMPH % 16.2 %; LYMPH ABS # 0.88 K/uL (1.2-3.4); MEAN CELL VOLUME 82.9 fL (80-100); MEAN CORPUSCULAR HEMOGLOBIN 28.5 pg (25-34); MEAN CORPUSCULAR HGB CONC 34.4 g/dl (32-36); MEAN PLATELET VOLUME 8.8 fL (7.4-10.4); MONO % 12.4 %; MONO ABS # 0.67 K/uL (0.11-0.59); NEUT % 67.1 %; NEUT ABS # 3.64 K/uL (1.4-6.5); PLATELET COUNT 146 K/uL (130-400); RED CELL DISTRIBUTION WIDTH CV 13.6 % (11.5-14.5); RED CELL DISTRIBUTION WIDTH SD 41.6 fL (36.4-46.3); WHITE BLOOD COUNT 5.42 K/uL (4.8-10.8)
[2017-12-05 07:49] LABS: CALCIUM 8.3 mg/dl (8.5-10.1); CREATININE 2.54 mg/dl (0.60-1.40); POTASSIUM 4.1 mmol/L (3.5-5.1)
[2017-12-05] MEDS: DOCUSATE SODIUM/SENNA 50/8.6MG TAB PO SCH ×2 (08:01→19:38)
[2017-12-05] MEDS: VENLAFAXINE HCL XR 75 MG CAPXR PO SCH (08:01)
[2017-12-05] MEDS: ATORVASTATIN 10 MG TAB PO SCH (08:01)
[2017-12-05] MEDS: METOPROLOL TARTRATE 100 MG TAB PO SCH ×2 (08:01→19:48)
[2017-12-05] MEDS: OXYCODONE HCL IR 5 MG TAB (IMMEDIATE RELEASE) PO PRN ×3 (08:02→19:36)
[2017-12-05] MEDS: HEPARIN SOD 5000 UNIT/0.5 ML CARP SQ SCH ×2 (08:05→19:38)
--- NOTE | 2017-12-05 08:52 | Neurology Progress Notes ---
Neurology Progress Note Date of Service Dec 05, 2017. Subjective Patient seems to have had a reasonable night and slept fairly well according to the nursing staff. Patient tells me he had pain overnight. This morning, the patient got up and walked to the bathroom without too much difficulty. He says his left hip hurts particularly with transitioning from a sitting to standing or standing to sitting position. His low back does not have much pain as much as the left hip. This morning the right hip does not hurt. He is not having pain radiating down the legs otherwise. He denies new weakness or numbness in the legs. He is afebrile and his blood pressure is stable. CBC shows normal white count and some anemia. Chest x-ray was unremarkable. Chem profile is largely unremarkable and the C reactive protein level is now 13. MRI of the brain revealed a very tiny, vague, nonspecific, old left frontal spot of uncertain etiology. There were no other abnormalities seen and I have reviewed the films and report Objective Date Time Temp Pulse Resp B/P (MAP) Pulse Ox O2 Delivery O2 Flow Rate FiO2 12/05/17 07:51 36.6 85 18 126/79 (95) 97 12/05/17 05:14 37.3 99 20 128/78 (95) 98 Room Air 12/05/17 01:00 36.7 88 19 139/87 (104) 99 Room Air 12/05/17 00:01 Room Air 12/04/17 20:30 Room Air 12/04/17 19:36 37.1 93 20 125/79 (94) 91 Room Air 12/04/17 16:37 Room Air 12/04/17 15:52 37.1 97 16 150/87 (108) 100 Room Air 12/04/17 12:22 36.4 118 18 167/108 (127) 100 12/04/17 12:00 Room Air Last 24 Hours Test 12/04/17 09:04 12/05/17 07:01 Prothrombin Time 9.5 SECONDS Prothromb Time International Ratio 0.9 White Blood Count 5.42 K/uL Red Blood Count 3.40 M/uL Hemoglobin 9.7 g/dL Hematocrit 28.2 % Mean Corpuscular Volume 82.9 fL Mean Corpuscular Hemoglobin 28.5 pg Mean Corpuscular Hemoglobin Concent 34.4 g/dl Platelet Count 146 K/uL Mean Platelet Volume 8.8 fL Neutrophils (%) (Auto) 67.1 % Lymphocytes (%) (Auto) 16.2 % Monocytes (%) (Auto) 12.4 % Eosinophils (%) (Auto) 2.8 % Basophils (%) (Auto) 0.2 % Neutrophils # (Auto) 3.64 K/uL Lymphocytes # (Auto) 0.88 K/uL Monocytes # (Auto) 0.67 K/uL Eosinophils # (Auto) 0.15 K/uL Basophils # (Auto) 0.01 K/uL RDW Standard Deviation 41.6 fL RDW Coefficient of Variation 13.6 % Immature Granulocyte % (Auto) 1.3 % Immature Granulocyte # (Auto) 0.07 K/uL Sodium Level 137 mmol/L Potassium Level 4.1 mmol/L Chloride Level 103 mmol/L Carbon Dioxide Level 23 mmol/L Anion Gap 10.0 mmol/L Creatinine 2.54 mg/dl Est Creatinine Clear Calc Drug Dose 47.1 ml/min Estimated GFR () 34.0 Estimated GFR (Non- 29.3 BUN/Creatinine Ratio 9.4 Random Glucose 97 mg/dl Calcium Level 8.3 mg/dl C-Reactive Protein 13.40 mg/dl Exam: He is awake and alert. He is not as anxious or upset as yesterday. He seems calmer and more pleasant. He follows commands well and has oriented with good speech and no dysarthria or aphasia. Extraocular eye muscles are intact without nystagmus. There is no facial droop. Are strength is normal and symmetrical. Leg strength is normal and symmetrical. His gait is cautious but narrow based and stable. He has some tenderness on the lateral aspects of his low back bilaterally as well as over his left hip. Current Inpatient Medications Medications (Trade) Dose Ordered Sig/Sanjiv Route Start Time Stop Time Status Last Admin Dose Admin Acetaminophen (Tylenol Tab) 650 mg Q4H PRN PO 12/03/17 22:45 01/02/18 22:44 12/05/17 05:07 650 MG Ondansetron HCl (Zofran Inj) 4 mg Q6H PRN IV 12/03/17 22:45 01/02/18 22:44 12/04/17 10:06 4 MG Ketorolac Tromethamine (Toradol Inj) 30 mg Q6H PRN IV 12/03/17 22:45 12/08/17 22:44 12/04/17 17:55 30 MG Potassium Chloride/Sodium Chloride 1,000 ml @ 75 mls/hr [id number] IV 12/03/17 23:00 01/02/18 22:59 12/05/17 03:18 75 MLS/HR Hydromorphone HCl (Dilaudid Inj) 0.5 mg Q3H PRN IV 12/04/17 10:15 12/18/17 10:14 12/05/17 04:49 0.5 MG Atorvastatin Calcium (Lipitor Tab) 10 mg DAILY PO 12/05/17 09:00 01/04/18 08:59 12/05/17 08:01 10 MG Clonazepam (Klonopin Tab) 1 mg BID PRN PO 12/04/17 10:30 01/03/18 10:29 12/04/17 12:00 1 MG Metoprolol Tartrate (Lopressor Tab) 100 mg BID PO 12/04/17 21:00 01/03/18 20:59 12/05/17 08:01 100 MG Ranitidine HCl (zANTac TAB) 300 mg DAILY PRN PO 12/04/17 10:30 01/03/18 10:29 12/05/17 05:03 300 MG Naloxone HCl (Narcan Inj) 0.4 mg Q1H PRN IV 12/04/17 10:45 01/03/18 10:44 Venlafaxine HCl (effeXOR EXTENDED REL CAP) 150 mg DAILY PO 12/05/17 09:00 01/04/18 08:59 12/05/17 08:01 150 MG Heparin Sodium (Porcine) (Heparin Sq 5000 Unit/0.5ml) 5,000 unit Q12 SQ 12/04/17 21:00 01/03/18 20:59 12/05/17 08:05 5,000 UNIT Oxycodone HCl (Roxicodone Immediate Rel Tab) @ Q4H PRN PO 12/04/17 11:45 12/18/17 11:44 12/05/17 08:02 10 MG Sodium Biphosphate/ Sodium Phosphate (Fleet Enema) 132 ml DAILY PRN NC 12/04/17 11:45 01/03/18 11:44 Senna/Docusate Sodium (Senokot S Tab) 1 tab BID PO 12/04/17 21:00 01/03/18 20:59 12/05/17 08:01 1 TAB Impression 1. Acute low back pain, post L4-5 diskectomy with fusion November 29. -I believe he is improved today compared to yesterday. The pain radiates to his hips but is not radicular into the legs. Today, the pain is in the left hip not the right. He has no other significant neurologic deficit in his legs, including no weakness, numbness, or reflex changes. Visually, the low back surgical scar looks clean and healing and he has some mild tenderness to palpation in the paraspinal muscles bilaterally. A CT scan 12-03 did not show any lumbar spine area changes consistent with infection. 2. Acute encephalopathy -resolved This patient has no significant encephalopathy today 3. Anxiety on venlafaxine, which was increased to 150 milligrams XR daily yesterday -improved He still has anxiety however He also carries a diagnosis of ADHD Patient apparently has been on clonazepam twice daily, as well as other ( narcotics) pain medicines to varying degrees. 4. Abnormal CT scan of the head with small left frontal and tiny left thalamic hypodensities of uncertain etiology, done December 03 at an outside institution Follow-up MRI of the brain yesterday shows a very small, vague, nonspecific left frontal white matter spot of an old nature. There is nothing new/acute. This single spot could represent a remote trauma (even from ) or a very tiny nonspecific small vessel ischemic event in the past He has no history of stroke although he has some risk factors with a history of hypertension and dyslipidemia He has no focal abnormalities on exam referable to the central nervous system. Plan 1. Consider plain x-rays of the hips, if not done recently, to evaluate for any reasons for pain. 2. Continue venlafaxine to 150 milligram XR daily 3. Physical and occupational therapy consult, increasing activity as able 4. Pain control with combination medicines including judicious doses of narcotics, Toradol, and benzodiazepines -I will not be involved in this patient' s Pain Management. 5. Agree with precautions, watching for withdrawal, although he seems stable currently. 6. There is no need for additional neurologic testing or treatment, at this time. Please contact me if I can be of further assistance on this case. I spent a total of 35 minutes with this case including records and films review , direct evaluation and discussion with the patient, as well as discussion with Dr. Reilly and the clinical staff caring for the patient
[2017-12-05] MEDS ORDERED: VENLAFAXINE HCL XR 75 MG CAPXR PO SCH (09:00)
[2017-12-05 13:57] LABS: CREATININE RANDOM URINE 36.3 mg/dl
--- NOTE | 2017-12-05 14:06 | DIAGNOSTIC IMAGING REPORT ---
L HIP UNILATERAL 2 VIEWS CLINICAL HISTORY: left hip pain s/p recent lumbar surgery pain COMPARISON: None. DISCUSSION: The bones and joint spaces appear intact. There is no evidence of fracture, dislocation or bony disease. There is no evidence for soft tissue swelling. IMPRESSION: Negative study. The above report was generated using voice recognition software. It may contain grammatical, syntax or spelling errors. Electronically signed by: Kenneth Cordero M.D. 12/05/2017 2:05 PM Dictated Date/Time: 12/05/2017 2:05 PM
[2017-12-05 17:04] LABS: CREATININE 2.93 mg/dl (0.60-1.40); POTASSIUM 3.8 mmol/L (3.5-5.1)
[2017-12-05] MEDS: ONDANSETRON INJ 2 MG/ML 2 ML VIAL IV PRN (19:36)
--- NOTE | 2017-12-05 19:54 | Progress Note ---
Subjective Date of Service: Dec 05, 2017. Subjective Pt evaluation today including: conversation w/ patient, physical exam, chart review, lab review, review of studies (hip x-rays), conversation w/ systems consultant ( neurology), review of inpatient medication list Pain: left lateral hip and left buttock; no paresthesias of legs PO Intake: improving slowly Voiding: no voiding problems telemetry stable overnight mental status has returned to normal main complaint is that of left hip buttock/lateral hip pain denies focal motor weakness of legs staff confirm he IS maintaining urine output Problem List Medical Problems: (1) Altered mental status Status: Acute (2) Anxiety Status: Chronic (3) Low back pain Status: Acute Review of Systems Constitutional: No fever, No chills Respiratory: No cough, No shortness of breath Cardiac: No chest pain Abdomen: No pain Objective Vital Signs Date Time Temp Pulse Resp B/P (MAP) Pulse Ox O2 Delivery O2 Flow Rate FiO2 12/05/17 16:00 99 Room Air 12/05/17 15:29 36.9 90 18 136/89 (105) 99 Room Air 12/05/17 12:00 Room Air 12/05/17 11:09 36.8 83 16 132/86 (101) 97 12/05/17 08:00 Room Air 12/05/17 07:51 36.6 85 18 126/79 (95) 97 12/05/17 05:14 37.3 99 20 128/78 (95) 98 Room Air 12/05/17 01:00 36.7 88 19 139/87 (104) 99 Room Air 12/05/17 00:01 Room Air 12/04/17 20:30 Room Air Physical Exam General Appearance: no apparent distress ENT: + pertinent finding (MM dry) Neck: no JVD Respiratory/Chest: lungs clear, no respiratory distress, no accessory muscle use Cardiovascular: regular rate, rhythm, no gallop, no murmur Abdomen: normal bowel sounds, non tender, soft, no organomegaly Extremities: no pedal edema Neurologic/Psychiatric: alert, oriented x 3, + pertinent finding (strength 5/5 x both legs (hip flexion/extension, ankle dorsiflexion/extension)) Skin: no rash, + pertinent finding (dressings intact lumbar spine) Comments: musculoskeletal - left hip - with passive ROM there is no pain or tenderness of the joint; there is no pain over the trochanteric bursa on the left with palpation Laboratory Results Last 24 Hours Test 12/05/17 07:01 12/05/17 11:32 12/05/17 16:29 White Blood Count 5.42 K/uL Red Blood Count 3.40 M/uL Hemoglobin 9.7 g/dL Hematocrit 28.2 % Mean Corpuscular Volume 82.9 fL Mean Corpuscular Hemoglobin 28.5 pg Mean Corpuscular Hemoglobin Concent 34.4 g/dl Platelet Count 146 K/uL Mean Platelet Volume 8.8 fL Neutrophils (%) (Auto) 67.1 % Lymphocytes (%) (Auto) 16.2 % Monocytes (%) (Auto) 12.4 % Eosinophils (%) (Auto) 2.8 % Basophils (%) (Auto) 0.2 % Neutrophils # (Auto) 3.64 K/uL Lymphocytes # (Auto) 0.88 K/uL Monocytes # (Auto) 0.67 K/uL Eosinophils # (Auto) 0.15 K/uL Basophils # (Auto) 0.01 K/uL RDW Standard Deviation 41.6 fL RDW Coefficient of Variation 13.6 % Immature Granulocyte % (Auto) 1.3 % Immature Granulocyte # (Auto) 0.07 K/uL Sodium Level 137 mmol/L 137 mmol/L Potassium Level 4.1 mmol/L 3.8 mmol/L Chloride Level 103 mmol/L 103 mmol/L Carbon Dioxide Level 23 mmol/L 23 mmol/L Anion Gap 10.0 mmol/L 11.0 mmol/L Blood Urea Nitrogen 24 mg/dl 24 mg/dl Creatinine 2.54 mg/dl 2.93 mg/dl Est Creatinine Clear Calc Drug Dose 47.1 ml/min 40.8 ml/min Estimated GFR () 34.0 28.6 Estimated GFR (Non- 29.3 24.7 BUN/Creatinine Ratio 9.4 8.3 Random Glucose 97 mg/dl 94 mg/dl Calcium Level 8.3 mg/dl 8.0 mg/dl C-Reactive Protein 13.40 mg/dl Urine Random Creatinine 36.3 mg/dl Urine Random Sodium 18 mEq/L Assessment and Plan 47yo male with: 1. encephalopathy - likely toxic from pain meds, gabapentin, etc - resolved. 2. lumbar back pain in the setting of recent lumbar laminectomy and L4-5 disc removal with fusion by Dr. Mock - 11/29/17 - DR - cont dilaudid IV prn. Add K-pad. Avoid muscle relaxers/benzos. Consider short-course of decadron. 3. left hip pain - hip x-rays wnl. Suspect that the pain is referred pain from the lumbar spine. Heat, pain meds prn. 4. acute kidney injury - prerenal? ATN? but u/a without casts. From poor oral intake the last few days while encephalopathic? Could he have had hypotension perioperatively leading to decreased perfusion and kidney injury? Send urine for creatinine & sodium. Send urine for eosinophils but no rash, etc. Check renal u/s, r/o obstruction - but doubt such given his age, etc. d/c toradol IV. avoid nephrotoxins. repeat BMP this afternoon and again in am. if any worsening then nephrology consultation. 5. 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 MRI findings could be due to such. 6. ADD, other mood d/o - noted; continue home meds. 7. DVT proph - heparin. 8. FEN - continue gentle hydration in light of #4. Diet as tolerated. BMP this afternoon & tomorrow AM. 9. mild acute blood loss anemia from recent back surgery - H/H stable. CBC in am. PT, OT consults requested Continued [facility] stay due to: multiple IV medications needed, other (acute kidney injury)
[2017-12-06] VITALS (7 sets, daily range): BP systolic 128–161; BP diastolic 81–95; PULSE 80–87; TEMP 36.5–37.2; O2SAT 95–100
[2017-12-06] MEDS: SODIUM CHLORIDE 0.9% 1000ML 1,000 ML IV SCH ×3 (00:07→20:37)
[2017-12-06] MEDS: OXYCODONE HCL IR 5 MG TAB (IMMEDIATE RELEASE) PO PRN ×3 (00:08→13:42)
--- NOTE | 2017-12-06 02:18 | ORTHOPEDIC CONSULTATION ---
DATE OF CONSULTATION: 12/04/2017 CHIEF COMPLAINT: Back pain. HISTORY OF PRESENT ILLNESS: The patient is a middle aged male known to myself having undergone a recent revision of lumbar discectomy and fusion. He did well initially postoperatively and presented to an outside ER with mental status change. He was transferred to [facility] for further evaluation due to unavailability of bed at the initial hospital. According to caregivers and reports from the hospital staff, the patient had been utilizing both the prescribed postoperative narcotics as well as tramadol he had at home as previously prescribed. He had confusion and slurred speech initially. A low-grade temperature was initially observed in the ER. He was admitted for further evaluation. Since admission, he demonstrated no focal deficits. He reported postoperative back pain without radicular symptoms. He had no further fevers. He denied any incontinence. He did report constipation. He denied leg pain, swelling and shortness of breath. PAST MEDICAL AND SURGICAL HISTORY: Notable for previous lumbar surgery, previous cholecystectomy, previous hernia repairs as well as a history of traumatic brain injury. ALLERGIES AND MEDICATIONS: Reviewed per the electronic medical record. REVIEW OF SYSTEMS: Negative for chest pain, shortness of breath, leg pain, numbness, tingling, or incontinence. SOCIAL HISTORY: The patient is currently living with a cousin. He is originally from [place]. Previously served in the where he suffered a traumatic brain injury. Currently unemployed. Denied current alcohol use. PHYSICAL EXAMINATION: The patient is afebrile. He is mildly tachycardic. At the time of my examination, the patient was ambulatory in the hospital room. His incision showed mild serosanguineous discharge without purulence. There was no significant swelling. There was no erythema. He had normal postoperative tenderness. Straight leg raise was negative. Strength testing was intact bilateral lower extremities. Sensation was intact in both lower extremities. Pulses were symmetric. There was no ankle edema. Calves were nontender. He was breathing comfortably. He was conversant and answered questions appropriately. LABORATORY DATA: White blood cell count was normal. Blood cultures were pending at the time of my evaluation. ASSESSMENT AND PLAN: The patient has postoperative back pain and what appears to be confusion related to medication reaction. He did not appear to have any signs or symptoms of infection. He was afebrile since admission. White count was normal. His back pain was consistent with postoperative back pain 6 days following revision and lumbar spine fusion. I would not recommend further MRI evaluation at this time as the utility of this modality for acute infection diagnosis without neurologic deficit is of limited value. I would recommend a bowel regimen, DVT prophylaxis, pain control and physical therapy. MTDD
[2017-12-06] MEDS: RANITIDINE HCL 150 MG TAB PO PRN (05:39)
[2017-12-06] MEDS ORDERED: GABAPENTIN 600 MG TAB PO STA (05:54)
[2017-12-06 06:33] LABS: BASO % 0.2 %; BASO ABS # 0.01 K/uL (0-0.2); EOS % 3.3 %; EOS ABS # 0.17 K/uL (0-0.5); HEMATOCRIT 28.4 % (42-52); HEMOGLOBIN 9.7 g/dL (14.0-18.0); IG# 0.09 K/uL (0.00-0.02); LYMPH % 17.7 %; LYMPH ABS # 0.92 K/uL (1.2-3.4); MEAN CORPUSCULAR HEMOGLOBIN 28.7 pg (25-34); MEAN CORPUSCULAR HGB CONC 34.2 g/dl (32-36); MEAN PLATELET VOLUME 8.6 fL (7.4-10.4); MONO % 11.1 %; MONO ABS # 0.58 K/uL (0.11-0.59); NEUT ABS # 3.44 K/uL (1.4-6.5); PLATELET COUNT 171 K/uL (130-400); RED CELL DISTRIBUTION WIDTH CV 13.6 % (11.5-14.5); RED CELL DISTRIBUTION WIDTH SD 41.6 fL (36.4-46.3); WHITE BLOOD COUNT 5.21 K/uL (4.8-10.8)
[2017-12-06 07:09] LABS: CALCIUM 8.1 mg/dl (8.5-10.1); CREATININE 3.39 mg/dl (0.60-1.40); POTASSIUM 4.2 mmol/L (3.5-5.1)
--- NOTE | 2017-12-06 08:02 | DIAGNOSTIC IMAGING REPORT ---
RENAL ULTRASOUND HISTORY: acute renal failure COMPARISON: None. FINDINGS: Right kidney: 11.5 cm. The lower pole is partially obscured by overlying bowel gas. No hydronephrosis. Normal corticomedullary differentiation and cortical thickness. Left kidney: 14.7 cm. No hydronephrosis. Normal corticomedullary differentiation and cortical thickness. Bladder: No bladder wall thickening. Miscellaneous: Hepatic steatosis. IMPRESSION: 1. No hydronephrosis. 2. Hepatic steatosis. Electronically signed by: Emanuel Dawson M.D. 12/06/2017 8:01 AM Dictated Date/Time: 12/06/2017 7:58 AM
[2017-12-06] MEDS: DOCUSATE SODIUM/SENNA 50/8.6MG TAB PO SCH ×2 (08:05→20:35)
[2017-12-06] MEDS: ATORVASTATIN 10 MG TAB PO SCH (08:05)
[2017-12-06] MEDS: VENLAFAXINE HCL XR 75 MG CAPXR PO SCH (08:06)
[2017-12-06] MEDS: METOPROLOL TARTRATE 100 MG TAB PO SCH ×2 (08:06→20:34)
[2017-12-06] MEDS: HEPARIN SOD 5000 UNIT/0.5 ML CARP SQ SCH ×2 (08:11→20:33)
[2017-12-06] MEDS: POLYETHYLENE (MIRALAX) 17 GM PACK PO SCH (08:32)
[2017-12-06] MEDS: DEXAMETHASONE INJ 6 MG in SYRINGE 0 ML IV SCH ×2 (12:17→20:34)
--- NOTE | 2017-12-06 15:03 | Nephrology Consultation ---
Nephrology Consultation Date & Providers Date of Consultation: Dec 06, 2017. Primary Care Provider: No Doctor, Assigned Referring Provider: Reason for Consultation Evaluation and management for acute kidney injury. History of Present Illness Devin Fitzpatrick is a 47-year-old gentlemen with recent back surgery admitted to the hospital with changes in Mental status. Nephrologic consult was requested as pt developed acute kidney injury. Electronic medical records including labs and imaging are reviewed in detail during patient's visit. Kevan recently had revision of lumbar fusion at [facility] on 2017. He was discharged to the home following day. At home as he has been taking both narcotics and tramadol. P.O intake has been poor. He has no history of chronic kidney disease, on admission creatinine was 0.7 on 12/03/17. Lab on 12/05/2017 showed acute kidney injury creatinine was 2.5, repeat lab this morning showed creatinine 3.4. Urinalysis negative for hematuria, proteinuria, pyuria. Renal ultrasound was negative for postrenal obstruction. Urinalysis from [facility] did show hyaline cast suggestive of volume depletion. Fena <1. Blood pressure was relatively soft when he arrived to [facility]. He has been non-oliguric. Currently he is mainly complaining of left hip pain. He denies taking any NSAID at home. He has been on gabapentin, dose was decreased for current GFR. Allergies Coded Allergies: Erythromycin (Verified Allergy, Mild, GI SYMPTOMS, 12/03/17) Omeprazole (Verified Allergy, Mild, GI SYMPTOMS, 12/03/17) Trazodone (Verified Allergy, Mild, GI SYMPTOMS, 12/03/17) Ziprasidone (Verified Allergy, Mild, GI SYMPTOMS, 12/03/17) Inpatient Medications Current Inpatient Medications Medications (Trade) Dose Ordered Sig/Sanjiv Route Start Time Stop Time Status Last Admin Dose Admin Acetaminophen (Tylenol Tab) 650 mg Q4H PRN PO 12/03/17 22:45 01/02/18 22:44 12/05/17 05:07 650 MG Ondansetron HCl (Zofran Inj) 4 mg Q6H PRN IV 12/03/17 22:45 01/02/18 22:44 12/05/17 19:36 4 MG Hydromorphone HCl (Dilaudid Inj) 0.5 mg Q3H PRN IV 12/04/17 10:15 12/18/17 10:14 12/05/17 11:21 0.5 MG Atorvastatin Calcium (Lipitor Tab) 10 mg DAILY PO 12/05/17 09:00 01/04/18 08:59 12/06/17 08:05 10 MG Clonazepam (Klonopin Tab) 1 mg BID PRN PO 12/04/17 10:30 01/03/18 10:29 12/04/17 12:00 1 MG Metoprolol Tartrate (Lopressor Tab) 100 mg BID PO 12/04/17 21:00 01/03/18 20:59 12/06/17 08:06 100 MG Ranitidine HCl (zANTac TAB) 300 mg DAILY PRN PO 12/04/17 10:30 01/03/18 10:29 12/06/17 05:39 300 MG Naloxone HCl (Narcan Inj) 0.4 mg Q1H PRN IV 12/04/17 10:45 01/03/18 10:44 Venlafaxine HCl (effeXOR EXTENDED REL CAP) 150 mg DAILY PO 12/05/17 09:00 01/04/18 08:59 12/06/17 08:06 150 MG Heparin Sodium (Porcine) (Heparin Sq 5000 Unit/0.5ml) 5,000 unit Q12 SQ 12/04/17 21:00 01/03/18 20:59 12/06/17 08:11 5,000 UNIT Oxycodone HCl (Roxicodone Immediate Rel Tab) @ Q4H PRN PO 12/04/17 11:45 12/18/17 11:44 12/06/17 05:25 10 MG Sodium Biphosphate/ Sodium Phosphate (Fleet Enema) 132 ml DAILY PRN [place] 12/04/17 11:45 01/03/18 11:44 Senna/Docusate Sodium (Senokot S Tab) 1 tab BID PO 12/04/17 21:00 01/03/18 20:59 12/06/17 08:05 1 TAB Sodium Chloride 1,000 ml @ 75 mls/hr [id number] IV 12/05/17 19:45 01/04/18 19:44 12/06/17 08:12 75 MLS/HR Polyethylene (Miralax Powder Packet) 17 gm DAILY PO 12/06/17 09:00 01/05/18 08:59 12/06/17 08:32 17 GM Dexamethasone Sodium Phosphate 6 mg/Syringe 1.5 ml @ 1 mls/min Q8H IV 12/06/17 12:00 01/05/18 11:59 Family History Patient denies any family history of chronic kidney disease or end-stage renal disease. Social History Smoking Status: Never Smoker Smokeless Tobacco Use: No Alcohol Use: none Drug Use: none Marital Status: Housing Status: lives with family Occupation: unemployed Review of Systems A complete review of systems was performed. Pertinent positives are noted above. All other systems are negative. Physical Exam Date Time Temp Pulse Resp B/P (MAP) Pulse Ox O2 Delivery O2 Flow Rate FiO2 12/06/17 08:22 36.5 87 20 128/81 (97) 97 Room Air 12/06/17 08:00 Room Air 12/06/17 04:00 Room Air 12/06/17 04:00 37.1 85 18 132/85 (101) 96 Room Air 12/06/17 00:00 Room Air 12/05/17 23:34 37.0 89 20 104/67 (79) 98 Room Air 12/05/17 20:14 36.4 96 16 143/85 (104) 100 Room Air 12/05/17 20:00 Room Air 12/05/17 16:00 99 Room Air 12/05/17 15:29 36.9 90 18 136/89 (105) 99 Room Air 12/05/17 12:00 Room Air GENERAL: Middle-aged male, AAA x 3, healthy-appearing, not in any distress. HEENT: Atraumatic, normocephalic. NECK: Supple, no JVD, no carotid bruit appreciated. ENT: No sinus tenderness MOUTH and THROAT: Moist oral mucosa, no oral ulcer or pharyngeal erythema RESPIRATORY: Normal breathing efforts, no accessory muscle use, clear to auscultation bilaterally, no wheezes or rales. CARDIOVASCULAR: S1, S2 normal, rate rhythm regular. ABDOMEN: Soft, nontender, positive bowel sound. MUSCULOSKELETAL: No joint swelling, erythema or tenderness. Normal range of motion. SKIN: No skin rash EXTREMITY: No lower extremity edema NEURO: No gross focal neurological deficit, speech fluent. PSYCHIATRY: Normal mood and judgment Laboratory Results Last 24 Hours Test 12/05/17 16:29 12/06/17 06:06 Sodium Level 137 mmol/L 139 mmol/L Potassium Level 3.8 mmol/L 4.2 mmol/L Chloride Level 103 mmol/L 109 mmol/L Carbon Dioxide Level 23 mmol/L 22 mmol/L Anion Gap 11.0 mmol/L 8.0 mmol/L Blood Urea Nitrogen 24 mg/dl 27 mg/dl Creatinine 2.93 mg/dl 3.39 mg/dl Est Creatinine Clear Calc Drug Dose 40.8 ml/min 35.3 ml/min Estimated GFR () 28.6 24.0 Estimated GFR (Non- 24.7 20.7 BUN/Creatinine Ratio 8.3 7.9 Random Glucose 94 mg/dl 100 mg/dl Calcium Level 8.0 mg/dl 8.1 mg/dl White Blood Count 5.21 K/uL Red Blood Count 3.38 M/uL Hemoglobin 9.7 g/dL Hematocrit 28.4 % Mean Corpuscular Volume 84.0 fL Mean Corpuscular Hemoglobin 28.7 pg Mean Corpuscular Hemoglobin Concent 34.2 g/dl Platelet Count 171 K/uL Mean Platelet Volume 8.6 fL Neutrophils (%) (Auto) 66.0 % Lymphocytes (%) (Auto) 17.7 % Monocytes (%) (Auto) 11.1 % Eosinophils (%) (Auto) 3.3 % Basophils (%) (Auto) 0.2 % Neutrophils # (Auto) 3.44 K/uL Lymphocytes # (Auto) 0.92 K/uL Monocytes # (Auto) 0.58 K/uL Eosinophils # (Auto) 0.17 K/uL Basophils # (Auto) 0.01 K/uL RDW Standard Deviation 41.6 fL RDW Coefficient of Variation 13.6 % Immature Granulocyte % (Auto) 1.7 % Immature Granulocyte # (Auto) 0.09 K/uL Total Creatine Kinase 193 U/L Impression 47-year-old gentlemen with acute kidney injury in the setting of recent back surgery, possible hypotension in the setting of opiate use for back pain and volume depletion with poor p.o. intake. Records from [facility] showed urinalysis with hyaline cast and relatively soft blood pressure. Repeat urinalysis here was negative for hematuria, proteinuria pyuria. No NSAID exposure or recent antibiotic use. Blood pressure has been relatively stable here. Renal ultrasound was unremarkable for postrenal obstruction. Creatinine was 0.7 on 12/03/17, rapidly increased to 2.5 on 12/05/2017 and continued to rise rapidly and increased to 3.4 this morning. Rapid rise in creatinine in the setting possible hypotension and volume depletion, most consistent with pre renal vs ATN. He has been non-oliguric, electrolyte acceptable. Blood pressure relatively stable. Recommendations --continue IV fluid normal saline at 100 mL/hour --monitor renal function and electrolyte with daily renal panel --dose medications for GFR less than 30, explain the reason why we had to decrease the gabapentin dose. --with IV hydration and stable blood pressure hopefully creatinine will start to improve --iron study --would not consider any further workup at this point Thank you for allowing me to participate in your patient's care. It was a pleasure to see Kevan
--- NOTE | 2017-12-06 16:47 | Orthopedic Progress Note ---
Orthopedic Progress Note Date of Service Dec 06, 2017. Subjective Reports: feeling well, pain controlled w PO medications Objective calves soft nontender, N/V intact, incision C/D/I, A&O x3 Date Time Temp Pulse Resp B/P (MAP) Pulse Ox O2 Delivery O2 Flow Rate FiO2 12/06/17 15:53 37.2 84 20 144/88 (106) 95 Room Air 12/06/17 12:00 Room Air 12/06/17 11:49 36.6 80 20 143/89 (107) 100 Room Air 12/06/17 08:22 36.5 87 20 128/81 (97) 97 Room Air 12/06/17 08:00 Room Air 12/06/17 04:00 Room Air 12/06/17 04:00 37.1 85 18 132/85 (101) 96 Room Air 12/06/17 00:00 Room Air 12/05/17 23:34 37.0 89 20 104/67 (79) 98 Room Air 12/05/17 20:14 36.4 96 16 143/85 (104) 100 Room Air 12/05/17 20:00 Room Air Laboratory Results 24 Hours: Test 12/06/17 06:06 White Blood Count 5.21 K/uL Red Blood Count 3.38 M/uL Hemoglobin 9.7 g/dL Hematocrit 28.4 % Mean Corpuscular Volume 84.0 fL Mean Corpuscular Hemoglobin 28.7 pg Mean Corpuscular Hemoglobin Concent 34.2 g/dl Platelet Count 171 K/uL Mean Platelet Volume 8.6 fL Neutrophils (%) (Auto) 66.0 % Lymphocytes (%) (Auto) 17.7 % Monocytes (%) (Auto) 11.1 % Eosinophils (%) (Auto) 3.3 % Basophils (%) (Auto) 0.2 % Neutrophils # (Auto) 3.44 K/uL Lymphocytes # (Auto) 0.92 K/uL Monocytes # (Auto) 0.58 K/uL Eosinophils # (Auto) 0.17 K/uL Basophils # (Auto) 0.01 K/uL Assessment & Plan Assessment: improving LBP and LLE radiculopathy. agree with decadron. ATN per medicine. PT as tolerated. Plan: PT/SCDs/decadron (1) Low back pain Acute (2) Anxiety Chronic (3) Altered mental status Resolved Discharge Planning Discharge Planning: home
[2017-12-06] MEDS ORDERED: SUCRALFATE 1 GM TAB PO STA (18:40)
[2017-12-06] MEDS: CLONAZEPAM 1 MG TAB PO PRN (19:30)
[2017-12-06] MEDS: SUCRALFATE 1 GM TAB PO SCH (20:34)
--- NOTE | 2017-12-06 20:45 | Progress Note ---
Subjective Date of Service: Dec 06, 2017. Subjective Pt evaluation today including: conversation w/ patient, physical exam, chart review, lab review, review of studies (records from [facility]), conversation w / customer relations consultant (nephrology, ortho), review of inpatient medication list Pain: left low back, radiating into left buttock/hip/leg (down to foot) PO Intake: normal Voiding: no voiding problems tele stable overnight main complain is "left hip" hurts to lay on it with trying to stand it is "excruciating" describes electric shocks going down into left leg and into the foot Problem List Medical Problems: (1) Anxiety Status: Chronic (2) Low back pain Status: Acute Review of Systems Constitutional: No fever Respiratory: No cough, No shortness of breath Cardiac: No chest pain Abdomen: + constipation, No pain Objective Vital Signs Date Time Temp Pulse Resp B/P (MAP) Pulse Ox O2 Delivery O2 Flow Rate FiO2 12/06/17 19:57 36.9 87 17 161/95 (117) 96 Room Air 12/06/17 19:51 Room Air 12/06/17 16:15 Room Air 12/06/17 15:53 37.2 84 20 144/88 (106) 95 Room Air 12/06/17 12:00 Room Air 12/06/17 11:49 36.6 80 20 143/89 (107) 100 Room Air 12/06/17 08:22 36.5 87 20 128/81 (97) 97 Room Air 12/06/17 08:00 Room Air 12/06/17 04:00 Room Air 12/06/17 04:00 37.1 85 18 132/85 (101) 96 Room Air 12/06/17 00:00 Room Air 12/05/17 23:34 37.0 89 20 104/67 (79) 98 Room Air Physical Exam General Appearance: no apparent distress ENT: pharynx normal Neck: no JVD Respiratory/Chest: lungs clear, no respiratory distress, no accessory muscle use Cardiovascular: regular rate, rhythm, no gallop, no murmur Abdomen: normal bowel sounds, non tender, soft, no organomegaly Extremities: no pedal edema Neurologic/Psychiatric: no motor/sensory deficits (strength 5/5 b/l legs), alert, oriented x 3 Comments: musculo - left hip - passive flexion, extension, adduction, and rotation does NOT reproduce pain; oddly, vs my exam yesterday, he now has pain over the trochanteric bursa w/ palpation Laboratory Results Last 24 Hours Test 12/06/17 06:06 White Blood Count 5.21 K/uL Red Blood Count 3.38 M/uL Hemoglobin 9.7 g/dL Hematocrit 28.4 % Mean Corpuscular Volume 84.0 fL Mean Corpuscular Hemoglobin 28.7 pg Mean Corpuscular Hemoglobin Concent 34.2 g/dl Platelet Count 171 K/uL Mean Platelet Volume 8.6 fL Neutrophils (%) (Auto) 66.0 % Lymphocytes (%) (Auto) 17.7 % Monocytes (%) (Auto) 11.1 % Eosinophils (%) (Auto) 3.3 % Basophils (%) (Auto) 0.2 % Neutrophils # (Auto) 3.44 K/uL Lymphocytes # (Auto) 0.92 K/uL Monocytes # (Auto) 0.58 K/uL Eosinophils # (Auto) 0.17 K/uL Basophils # (Auto) 0.01 K/uL RDW Standard Deviation 41.6 fL RDW Coefficient of Variation 13.6 % Immature Granulocyte % (Auto) 1.7 % Immature Granulocyte # (Auto) 0.09 K/uL Sodium Level 139 mmol/L Potassium Level 4.2 mmol/L Chloride Level 109 mmol/L Carbon Dioxide Level 22 mmol/L Anion Gap 8.0 mmol/L Blood Urea Nitrogen 27 mg/dl Creatinine 3.39 mg/dl Est Creatinine Clear Calc Drug Dose 35.3 ml/min Estimated GFR () 24.0 Estimated GFR (Non- 20.7 BUN/Creatinine Ratio 7.9 Random Glucose 100 mg/dl Calcium Level 8.1 mg/dl Total Creatine Kinase 193 U/L Assessment and Plan 47yo male with: 1. encephalopathy - likely toxic from pain meds, gabapentin, etc prior to admission - resolved. 2. lumbar back pain in the setting of recent lumbar laminectomy and L4-5 disc removal with fusion by Dr. Mock - 11/29/17 [place] [facility] [place] dilaudid IV prn. Add K-pad. Avoid muscle relaxers/benzos. Gabapentin 300mg po x 1 given last pm; will not give additional doses today due to ARF/COLE. Add decadron 6mg IV q8h for suspected radicular pain. 3. left hip pain - hip x-rays wnl. Suspect that the pain is referred pain from the lumbar spine. I cannot rule out trochanteric bursitis on the left but less suspicious given his radicular symptoms down the leg. Spoke with Dr. Mock today - he is ok with steroids. 4. acute kidney injury - suspect due to ATN. Records obtained from [place] - on 12/03 his urine micro showed hyaline casts. urine eosinophils negative. renal u/s w/o obstruction. appreciate nephrology consult. avoid nephrotoxins. although Cr has risen again today his K is normal, acid/base balance is ok, and he is not volume overloaded. continue gentle hydration. 5. 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 MRI findings could be due to such. 6. ADD, other mood d/o - noted; continue home meds. 7. DVT proph - heparin. 8. FEN - continue gentle hydration in light of #4. Diet as tolerated. BMP in AM. 9. mild acute blood loss anemia from recent back surgery - H/H stable once again today. PT, OT consults requested Continued [facility] stay due to: multiple IV medications needed, other (acute kidney injury) Discharge planning: uncertain
[2017-12-07] MEDS: DEXAMETHASONE INJ 6 MG in SYRINGE 0 ML IV SCH ×2 (03:42→12:06)
[2017-12-07 04:03] VITALS: BP 143/94; PULSE 73; TEMP 36.9; O2SAT 98
[2017-12-07 07:34] LABS: CALCIUM 8.5 mg/dl (8.5-10.1); CREATININE 3.37 mg/dl (0.60-1.40); POTASSIUM 4.8 mmol/L (3.5-5.1)
[2017-12-07 07:44] VITALS: BP 146/92; PULSE 73; TEMP 36.6; O2SAT 96
[2017-12-07] MEDS: METOPROLOL TARTRATE 100 MG TAB PO SCH ×2 (08:02→21:15)
[2017-12-07] MEDS: DOCUSATE SODIUM/SENNA 50/8.6MG TAB PO SCH ×2 (08:02→21:15)
[2017-12-07] MEDS: ATORVASTATIN 10 MG TAB PO SCH (08:02)
[2017-12-07] MEDS: POLYETHYLENE (MIRALAX) 17 GM PACK PO SCH (08:02)
[2017-12-07] MEDS: RANITIDINE HCL 150 MG TAB PO SCH ×2 (08:02→21:15)
[2017-12-07] MEDS: VENLAFAXINE HCL XR 75 MG CAPXR PO SCH (08:02)
[2017-12-07] MEDS: SUCRALFATE 1 GM TAB PO SCH ×4 (08:02→21:00)
[2017-12-07] MEDS: HEPARIN SOD 5000 UNIT/0.5 ML CARP SQ SCH ×2 (08:05→21:16)
--- NOTE | 2017-12-07 10:07 | Nephrology Progress Note ---
Nephrology Progress Note Date of Service Dec 07, 2017. Chief Complaint Follow-up for acute kidney injury. Subjective Kevan was seen and examined in his room this morning. Continues to have left hip pain but seems to be better than before. Renal function stable and creatinine seems to have peaked, 3.4, electrolyte acceptable. Blood pressure fair, urine output decent. Denies shortness of breath or chest pain. Review of Systems A complete review of systems was performed. Pertinent positives are noted above. All other systems are negative. Vital Signs Last 8 Hrs Date Time Temp Pulse Resp B/P (MAP) Pulse Ox O2 Delivery O2 Flow Rate FiO2 12/07/17 08:00 Room Air 12/07/17 07:44 36.6 73 20 146/92 (110) 96 Room Air 12/07/17 04:10 Room Air 12/07/17 04:03 36.9 73 16 143/94 (110) 98 Room Air Last Recorded Weight Weight (Kilograms): 108.000 Physical Exam GENERAL: Middle-aged pain, AAA x 3, pleasant, healthy-appearing, not in any distress. NECK: Supple, no JVD. RESPIRATORY: Normal breathing efforts, no accessory muscle use, clear to auscultation bilaterally, no wheezes or rales. CARDIOVASCULAR: S1, S2 normal, rate rhythm regular. EXTREMITY: No lower extremity edema NEURO: speech fluent. PSYCHIATRY: Normal mood and judgment Family History Patient denies any family history of chronic kidney disease or end-stage renal disease. Social History Smoking Status: Never smoker Smokeless Tobacco Use: No Alcohol Use: none Drug Use: none Marital Status: Housing Status: lives with family Occupation: unemployed Laboratory Results Past 24 Hours 12/07/17 06:47 Test 12/07/17 06:47 Anion Gap 8.0 mmol/L (3-11) Est Creatinine Clear Calc Drug Dose 35.7 ml/min Estimated GFR () 24.1 Estimated GFR (Non- 20.8 BUN/Creatinine Ratio 9.1 (10-20) Calcium Level 8.5 mg/dl (8.5-10.1) Allergies Coded Allergies: Erythromycin (Verified Allergy, Mild, GI SYMPTOMS, 12/03/17) Omeprazole (Verified Allergy, Mild, GI SYMPTOMS, 12/03/17) Trazodone (Verified Allergy, Mild, GI SYMPTOMS, 12/03/17) Ziprasidone (Verified Allergy, Mild, GI SYMPTOMS, 12/03/17) Medications Current Inpatient Medications Medications (Trade) Dose Ordered Sig/Sanjiv Route Start Time Stop Time Status Last Admin Dose Admin Acetaminophen (Tylenol Tab) 650 mg Q4H PRN PO 12/03/17 22:45 01/02/18 22:44 12/05/17 05:07 650 MG Ondansetron HCl (Zofran Inj) 4 mg Q6H PRN IV 12/03/17 22:45 01/02/18 22:44 12/05/17 19:36 4 MG Hydromorphone HCl (Dilaudid Inj) 0.5 mg Q3H PRN IV 12/04/17 10:15 12/18/17 10:14 12/05/17 11:21 0.5 MG Atorvastatin Calcium (Lipitor Tab) 10 mg DAILY PO 12/05/17 09:00 01/04/18 08:59 12/07/17 08:02 10 MG Clonazepam (Klonopin Tab) 1 mg BID PRN PO 12/04/17 10:30 01/03/18 10:29 12/06/17 19:30 1 MG Metoprolol Tartrate (Lopressor Tab) 100 mg BID PO 12/04/17 21:00 01/03/18 20:59 12/07/17 08:02 100 MG Naloxone HCl (Narcan Inj) 0.4 mg Q1H PRN IV 12/04/17 10:45 01/03/18 10:44 Venlafaxine HCl (effeXOR EXTENDED REL CAP) 150 mg DAILY PO 12/05/17 09:00 01/04/18 08:59 12/07/17 08:02 150 MG Heparin Sodium (Porcine) (Heparin Sq 5000 Unit/0.5ml) 5,000 unit Q12 SQ 12/04/17 21:00 01/03/18 20:59 12/07/17 08:05 5,000 UNIT Oxycodone HCl (Roxicodone Immediate Rel Tab) @ Q4H PRN PO 12/04/17 11:45 12/18/17 11:44 12/06/17 13:42 10 MG Sodium Biphosphate/ Sodium Phosphate (Fleet Enema) 132 ml DAILY PRN [place] 12/04/17 11:45 01/03/18 11:44 Senna/Docusate Sodium (Senokot S Tab) 1 tab BID PO 12/04/17 21:00 01/03/18 20:59 12/07/17 08:02 1 TAB Sodium Chloride 1,000 ml @ 75 mls/hr [id number] IV 12/05/17 19:45 01/04/18 19:44 12/06/17 20:37 75 MLS/HR Polyethylene (Miralax Powder Packet) 17 gm DAILY PO 12/06/17 09:00 01/05/18 08:59 12/07/17 08:02 17 GM Dexamethasone Sodium Phosphate 6 mg/Syringe 1.5 ml @ 1 mls/min Q8H IV 12/06/17 12:00 01/05/18 11:59 12/07/17 03:42 1 MLS/MIN Ranitidine HCl (zANTac TAB) 150 mg BID PO 12/07/17 09:00 01/03/18 10:29 12/07/17 08:02 150 MG Sucralfate (Carafate Tab) 1 gm QID PO 12/06/17 21:00 01/05/18 20:59 12/07/17 08:02 1 GM Impression 47-year-old gentlemen with acute kidney injury in the setting of recent back surgery, possible hypotension in the setting of opiate use for back pain and volume depletion with poor p.o. intake. Records from [facility] showed urinalysis with hyaline cast and relatively soft blood pressure. Repeat urinalysis here was negative for hematuria, proteinuria pyuria. No NSAID exposure or recent antibiotic use. Blood pressure has been relatively stable here. Renal ultrasound was unremarkable for postrenal obstruction. Creatinine was 0.7 on 12/03/17, rapidly increased to 2.5 on 12/05/2017 and continued to rise rapidly and increased to 3.4 this morning. Rapid rise in creatinine in the setting possible hypotension and volume depletion, most consistent with pre renal vs ATN. He has been non-oliguric, electrolyte acceptable. Blood pressure relatively stable. Recommendations --continue IV fluid normal saline at 100 mL/hour --monitor renal function and electrolyte with daily renal panel --with IV hydration and stable blood pressure hopefully creatinine will start to improve --iron study --would not consider any further workup at this point Will follow
[2017-12-07] MEDS: SODIUM CHLORIDE 0.9% 1000ML 1,000 ML IV SCH ×2 (10:48→23:44)
[2017-12-07] MEDS: OXYCODONE HCL IR 5 MG TAB (IMMEDIATE RELEASE) PO PRN ×2 (10:56→23:41)
[2017-12-07 12:03] VITALS: BP 138/73; PULSE 72; TEMP 36.4; O2SAT 98
[2017-12-07 15:28] VITALS: BP 153/89; PULSE 82; TEMP 36.9; O2SAT 97
[2017-12-07 16:00] VITALS: O2SAT 97
--- NOTE | 2017-12-07 16:34 | Progress Note ---
Subjective Date of Service: Dec 07, 2017. Subjective Pt evaluation today including: conversation w/ patient, physical exam, chart review, lab review, review of inpatient medication list Pain: lumbar back and left hip/left leg - IMPROVED PO Intake: normal Voiding: no voiding problems tele overnight normal he feels much better today less pain with lying, sitting or standing over the left leg could actually lay on left leg last pm more comfortably having stools but they are firm Problem List Medical Problems: (1) Anxiety Status: Chronic (2) Low back pain Status: Acute Review of Systems Constitutional: No fever Respiratory: No shortness of breath Cardiac: No chest pain Abdomen: No pain, No nausea, No vomiting Objective Vital Signs Date Time Temp Pulse Resp B/P (MAP) Pulse Ox O2 Delivery O2 Flow Rate FiO2 12/07/17 15:28 36.9 82 20 153/89 (110) 97 12/07/17 12:03 36.4 72 20 138/73 (94) 98 Room Air 12/07/17 12:00 Room Air 12/07/17 08:00 Room Air 12/07/17 07:44 36.6 73 20 146/92 (110) 96 Room Air 12/07/17 04:10 Room Air 12/07/17 04:03 36.9 73 16 143/94 (110) 98 Room Air 12/07/17 00:15 Room Air 12/06/17 23:47 37.0 80 16 146/89 (108) 96 Room Air 12/06/17 21:34 160/95 (116) 12/06/17 19:57 36.9 87 17 161/95 (117) 96 Room Air 12/06/17 19:51 Room Air Physical Exam General Appearance: no apparent distress, + pertinent finding (looks much more comfortable today) ENT: pharynx normal Neck: no JVD Respiratory/Chest: lungs clear, no respiratory distress, no accessory muscle use Cardiovascular: regular rate, rhythm, no gallop, no murmur Abdomen: normal bowel sounds, non tender, soft, no organomegaly Extremities: no pedal edema Neurologic/Psychiatric: no motor/sensory deficits (strength 5/5 b/l LEs), alert , oriented x 3 Comments: musculo - no pain/tenderness over left trochanteric bursal area Laboratory Results Last 24 Hours Test 12/07/17 06:47 Sodium Level 139 mmol/L Potassium Level 4.8 mmol/L Chloride Level 110 mmol/L Carbon Dioxide Level 21 mmol/L Anion Gap 8.0 mmol/L Blood Urea Nitrogen 31 mg/dl Creatinine 3.37 mg/dl Est Creatinine Clear Calc Drug Dose 35.7 ml/min Estimated GFR () 24.1 Estimated GFR (Non- 20.8 BUN/Creatinine Ratio 9.1 Random Glucose 134 mg/dl Calcium Level 8.5 mg/dl Assessment and Plan 47yo male with: 1. encephalopathy - likely toxic from pain meds, gabapentin, etc prior to admission - resolved. 2. lumbar back pain in the setting of recent lumbar laminectomy and L4-5 disc removal with fusion by Dr. Mock - 11/29/17 - [facility] [place] marked improvement with use of IV decadron. Can taper decadron to BID dosing today. Avoid muscle relaxers/benzos. Stop dilaudid; use oxycodone prn. Appreciate Dr. Man's consultation. 3. left hip pain - hip x-rays wnl. Suspect that the pain was referred pain from the lumbar spine. I cannot rule out trochanteric bursitis on the left but less suspicious given his radicular symptoms down the leg. Cont IV steroids but taper them today. 4. acute kidney injury - likely due to ATN in setting of poor oral intake post- op at home. He could have had transient hypotension post-op as well but this would be difficult to prove. Records obtained from [place] - on 12/03 his urine micro showed hyaline casts. urine eosinophils negative. renal u/s w/o obstruction. appreciate nephrology consult. avoid nephrotoxins. creatinine appears to have leveled off today so hopefully his creatinine will start to decrease tomorrow. continue gentle hydration. 5. 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 MRI findings could be due to such. 6. ADD, other mood d/o - noted; continue home meds. 7. DVT proph - heparin. 8. FEN - continue gentle hydration in light of #4. Diet as tolerated. BMP in AM to ensure stability of creatinine. 9. mild acute blood loss anemia from recent back surgery - H/H have been stable. PT, OT consults requested and cleared for home by them d/c tele change to med/surg status Continued [facility] stay due to: multiple IV medications needed, other (acute kidney injury) Discharge planning: home
[2017-12-07 21:11] VITALS: BP 164/99; PULSE 83
[2017-12-07] MEDS: CLONAZEPAM 1 MG TAB PO PRN (21:17)
[2017-12-08 00:25] VITALS: BP 145/89; PULSE 75; TEMP 36.4; O2SAT 98
[2017-12-08] MEDS: DEXAMETHASONE INJ 6 MG in SYRINGE 0 ML IV SCH ×2 (00:27→12:24)
[2017-12-08 07:36] VITALS: BP 143/81; PULSE 71; TEMP 36.6; O2SAT 97
[2017-12-08 07:50] LABS: CALCIUM 8.6 mg/dl (8.5-10.1); CREATININE 3.1 mg/dl (0.60-1.40)
[2017-12-08] MEDS ORDERED: SODIUM POLYST. SULF SUSP 15G/60ML PO STA (07:57)
[2017-12-08] MEDS: ATORVASTATIN 10 MG TAB PO SCH (08:15)
[2017-12-08] MEDS: SUCRALFATE 1 GM TAB PO SCH ×4 (08:16→21:00)
[2017-12-08] MEDS: RANITIDINE HCL 150 MG TAB PO SCH ×2 (08:16→21:00)
[2017-12-08] MEDS: VENLAFAXINE HCL XR 75 MG CAPXR PO SCH (08:16)
[2017-12-08] MEDS: POLYETHYLENE (MIRALAX) 17 GM PACK PO SCH (08:16)
[2017-12-08] MEDS: DOCUSATE SODIUM/SENNA 50/8.6MG TAB PO SCH ×2 (08:16→21:00)
[2017-12-08] MEDS: HEPARIN SOD 5000 UNIT/0.5 ML CARP SQ SCH ×3 (08:19→21:04)
[2017-12-08] MEDS: METOPROLOL TARTRATE 100 MG TAB PO SCH ×2 (08:24→21:01)
--- NOTE | 2017-12-08 11:51 | Nephrology Progress Note ---
Nephrology Progress Note Date of Service Dec 08, 2017. Chief Complaint Follow-up for acute kidney injury. Horacio Mathur was seen and examined in his room this morning. Back pain improving, otherwise remained asymptomatic. Renal function started to improve creatinine 3.1 this morning, decent urine output, blood pressure acceptable. Potassium was elevated at 6.0. Has not been on potassium supplement SEVEN-inhibitor/ARB. Review of Systems A complete review of systems was performed. Pertinent positives are noted above. All other systems are negative. Vital Signs Last 8 Hrs Date Time Temp Pulse Resp B/P (MAP) Pulse Ox O2 Delivery O2 Flow Rate FiO2 12/08/17 07:36 36.6 71 17 143/81 (101) 97 Last Recorded Weight Weight (Kilograms): 108.000 Physical Exam GENERAL: Middle-aged male, AAA x 3, pleasant, healthy-appearing, not in any distress. NECK: Supple, no JVD. RESPIRATORY: Normal breathing efforts, no accessory muscle use, clear to auscultation bilaterally, no wheezes or rales. CARDIOVASCULAR: S1, S2 normal, rate rhythm regular. EXTREMITY: No lower extremity edema NEURO: speech fluent. PSYCHIATRY: Normal mood and judgment Family History Patient denies any family history of chronic kidney disease or end-stage renal disease. Social History Smoking Status: Never smoker Smokeless Tobacco Use: No Alcohol Use: none Drug Use: none Marital Status: Housing Status: lives with family Occupation: unemployed Laboratory Results Past 24 Hours 12/08/17 06:28 Test 12/08/17 06:28 Anion Gap 6.0 mmol/L (3-11) Est Creatinine Clear Calc Drug Dose 38.8 ml/min Estimated GFR () 26.7 Estimated GFR (Non- 23.0 BUN/Creatinine Ratio 11.3 (10-20) Calcium Level 8.6 mg/dl (8.5-10.1) Allergies Coded Allergies: Erythromycin (Verified Allergy, Mild, GI SYMPTOMS, 12/03/17) Omeprazole (Verified Allergy, Mild, GI SYMPTOMS, 12/03/17) Trazodone (Verified Allergy, Mild, GI SYMPTOMS, 12/03/17) Ziprasidone (Verified Allergy, Mild, GI SYMPTOMS, 12/03/17) Medications Current Inpatient Medications Medications (Trade) Dose Ordered Sig/Sanjiv Route Start Time Stop Time Status Last Admin Dose Admin Acetaminophen (Tylenol Tab) 650 mg Q4H PRN PO 12/03/17 22:45 01/02/18 22:44 12/05/17 05:07 650 MG Ondansetron HCl (Zofran Inj) 4 mg Q6H PRN IV 12/03/17 22:45 01/02/18 22:44 12/05/17 19:36 4 MG Atorvastatin Calcium (Lipitor Tab) 10 mg DAILY PO 12/05/17 09:00 01/04/18 08:59 12/08/17 08:15 10 MG Clonazepam (Klonopin Tab) 1 mg BID PRN PO 12/04/17 10:30 01/03/18 10:29 12/07/17 21:17 1 MG Metoprolol Tartrate (Lopressor Tab) 100 mg BID PO 12/04/17 21:00 01/03/18 20:59 12/08/17 08:24 100 MG Naloxone HCl (Narcan Inj) 0.4 mg Q1H PRN IV 12/04/17 10:45 01/03/18 10:44 Venlafaxine HCl (effeXOR EXTENDED REL CAP) 150 mg DAILY PO 12/05/17 09:00 01/04/18 08:59 12/08/17 08:16 150 MG Heparin Sodium (Porcine) (Heparin Sq 5000 Unit/0.5ml) 5,000 unit Q12 SQ 12/04/17 21:00 01/03/18 20:59 12/07/17 21:16 5,000 UNIT Oxycodone HCl (Roxicodone Immediate Rel Tab) @ Q4H PRN PO 12/04/17 11:45 12/18/17 11:44 12/07/17 23:41 10 MG Sodium Biphosphate/ Sodium Phosphate (Fleet Enema) 132 ml DAILY PRN TN 12/04/17 11:45 01/03/18 11:44 Senna/Docusate Sodium (Senokot S Tab) 1 tab BID PO 12/04/17 21:00 01/03/18 20:59 12/08/17 08:16 1 TAB Sodium Chloride 1,000 ml @ 75 mls/hr [id number] IV 12/05/17 19:45 01/04/18 19:44 12/07/17 23:44 75 MLS/HR Polyethylene (Miralax Powder Packet) 17 gm DAILY PO 12/06/17 09:00 01/05/18 08:59 12/08/17 08:16 17 GM Ranitidine HCl (zANTac TAB) 150 mg BID PO 12/07/17 09:00 01/03/18 10:29 12/08/17 08:16 150 MG Sucralfate (Carafate Tab) 1 gm QID PO 12/06/17 21:00 01/05/18 20:59 12/08/17 08:16 1 GM Dexamethasone Sodium Phosphate 6 mg/Syringe 1.5 ml @ 1 mls/min Q12H IV 12/08/17 00:00 01/05/18 11:59 12/08/17 00:27 1 MLS/MIN Impression 47-year-old gentlemen with acute kidney injury in the setting of recent back surgery, possible hypotension in the setting of opiate use for back pain and volume depletion with poor p.o. intake. Records from [facility] showed urinalysis with hyaline cast and relatively soft blood pressure. Repeat urinalysis here was negative for hematuria, proteinuria pyuria. No NSAID exposure or recent antibiotic use. Blood pressure has been relatively stable here. Renal ultrasound was unremarkable for postrenal obstruction. Creatinine was 0.7 on 12/03/17, rapidly increased to 2.5 on 12/05/2017 and continued to rise rapidly and increased to 3.4 this morning. Rapid rise in creatinine in the setting possible hypotension and volume depletion, most consistent with pre renal vs ATN. He has been non-oliguric, electrolyte acceptable. Blood pressure relatively stable. Recommendations --renal function started to improve, patient has been having adequate p.o. intake, decent urine output, blood pressure stable, discontinue IV fluid --kayexalate 30 gm po x 1 dose --low K diet --renal panel in am Will follow
[2017-12-08 16:00] VITALS: O2SAT 97
[2017-12-08 16:05] VITALS: BP 168/93; PULSE 80; TEMP 36.8; O2SAT 98
[2017-12-08] MEDS: OXYCODONE HCL IR 5 MG TAB (IMMEDIATE RELEASE) PO PRN ×2 (18:03→23:27)
--- NOTE | 2017-12-08 19:27 | Progress Note ---
Subjective Date of Service: Dec 08, 2017. Subjective Pt evaluation today including: conversation w/ patient, physical exam, chart review, lab review Pain: back/left leg - much improved PO Intake: normal Voiding: no voiding problems no issues overnight minimal use of narcotics for pain at this time able to ambulate without much difficulty no significant paresthesias of left leg had good bowel movement today Problem List Medical Problems: (1) Anxiety Status: Chronic (2) Low back pain Status: Acute Review of Systems Constitutional: No fever Respiratory: No shortness of breath Cardiac: No chest pain Abdomen: No pain Objective Vital Signs Date Time Temp Pulse Resp B/P (MAP) Pulse Ox O2 Delivery O2 Flow Rate FiO2 12/08/17 16:05 36.8 80 16 168/93 (118) 98 Room Air 12/08/17 08:00 Room Air 12/08/17 07:36 36.6 71 17 143/81 (101) 97 12/08/17 00:25 36.4 75 20 145/89 (107) 98 Room Air 12/08/17 00:00 Room Air 12/07/17 21:11 83 164/99 (120) Physical Exam General Appearance: no apparent distress, + pertinent finding (looks good) ENT: pharynx normal Neck: no JVD Respiratory/Chest: lungs clear, no respiratory distress, no accessory muscle use Cardiovascular: regular rate, rhythm, no gallop, no murmur Abdomen: normal bowel sounds, non tender, soft, no organomegaly Extremities: no pedal edema Neurologic/Psychiatric: no motor/sensory deficits (strength b/l legs 5/5), alert, oriented x 3 Comments: musculo - no tenderness today over left trochanteric bursal region w/ palpation Laboratory Results Last 24 Hours Test 12/08/17 06:28 12/08/17 08:25 Sodium Level 138 mmol/L Potassium Level 6.0 mmol/L 4.8 mmol/L Chloride Level 110 mmol/L Carbon Dioxide Level 22 mmol/L Anion Gap 6.0 mmol/L Blood Urea Nitrogen 35 mg/dl Creatinine 3.10 mg/dl Est Creatinine Clear Calc Drug Dose 38.8 ml/min Estimated GFR () 26.7 Estimated GFR (Non- 23.0 BUN/Creatinine Ratio 11.3 Random Glucose 130 mg/dl Calcium Level 8.6 mg/dl Assessment and Plan 47yo male with: 1. toxic encephalopathy - resolved, has not recurred. 2. lumbar back pain in the setting of recent lumbar laminectomy and L4-5 disc removal with [place] by Dr. Mock [place] [facility] [place] with use of IV decadron. Taper decadron to 4mg PO BID starting tonight. 3. left hip pain - hip x-rays wnl. Suspect that the pain was referred pain from the lumbar spine. Cont steroids. 4. acute kidney injury - likely due to ATN in setting of poor oral intake post- op at home. He could have had transient hypotension post-op as well but this would be difficult to prove. Records obtained from [facility] - on 12/03 his urine micro showed hyaline casts. urine eosinophils negative. renal u/s w/o obstruction. appreciate nephrology consult. avoid nephrotoxins. creatinine minimally improved today but UOP has picked up nicely in the last 24 hours. repeat BMP am. fluids stopped by nephrology today. 5. 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 MRI findings could be due to such. 6. ADD, other mood d/o - noted; continue home meds. 7. DVT proph - heparin. 8. FEN - BMP in am; IVF d/c. Diet as tolerated. 9. mild acute blood loss anemia from recent back surgery - H/H have been stable. 10. hyperkalemia - was likely due to hemolysis; repeat was wnl. PT, OT consults requested and cleared for home by them once creatinine is continuously coming down can d/c home Continued [facility] stay due to: multiple IV medications needed, other (acute kidney injury) Discharge planning: home
[2017-12-08 20:57] VITALS: BP 180/106; PULSE 88
[2017-12-08] MEDS: DEXAMETHASONE 4 MG TAB PO SCH (21:01)
[2017-12-08] MEDS: CLONAZEPAM 1 MG TAB PO PRN (21:04)
[2017-12-08 23:40] VITALS: BP 176/96; PULSE 69; TEMP 36.6; O2SAT 99
[2017-12-09 00:20] VITALS: O2SAT 97
[2017-12-09] MEDS: POLYETHYLENE (MIRALAX) 17 GM PACK PO SCH (07:49)
[2017-12-09] MEDS: DEXAMETHASONE 4 MG TAB PO SCH (07:50)
[2017-12-09] MEDS: HEPARIN SOD 5000 UNIT/0.5 ML CARP SQ SCH ×2 (07:50→21:18)
[2017-12-09] MEDS: VENLAFAXINE HCL XR 75 MG CAPXR PO SCH (07:51)
[2017-12-09 07:52] LABS: CALCIUM 8.8 mg/dl (8.5-10.1); CREATININE 2.77 mg/dl (0.60-1.40); POTASSIUM 5.5 mmol/L (3.5-5.1)
[2017-12-09] MEDS: ATORVASTATIN 10 MG TAB PO SCH (07:53)
[2017-12-09] MEDS: METOPROLOL TARTRATE 100 MG TAB PO SCH ×2 (07:53→21:10)
[2017-12-09] MEDS: RANITIDINE HCL 150 MG TAB PO SCH ×2 (07:53→21:08)
[2017-12-09] MEDS: DOCUSATE SODIUM/SENNA 50/8.6MG TAB PO SCH ×2 (07:54→21:09)
[2017-12-09] MEDS: SUCRALFATE 1 GM TAB PO SCH ×4 (07:54→21:08)
[2017-12-09] MEDS: NIFEdipine 30 MG CR TAB PO SCH (08:11)
[2017-12-09 08:19] VITALS: BP 172/94; PULSE 69; TEMP 36.6; O2SAT 98
[2017-12-09] MEDS ORDERED: SODIUM POLYST. SULF SUSP 15G/60ML PO STA (08:41)
--- NOTE | 2017-12-09 11:53 | Nephrology Progress Note ---
Nephrology Progress Note Date of Service Dec 09, 2017. Chief Complaint Follow-up for acute kidney injury. Horacio Mathur was seen and examined in his room this morning. Back pain improving, otherwise remained asymptomatic. Renal function continues to improve creatinine 2.8 this morning, decent urine output, blood pressure acceptable. Potassium was elevated at 5.5. Has not been on potassium supplement SEVEN- inhibitor/ARB. Review of Systems A complete review of systems was performed. Pertinent positives are noted above. All other systems are negative. Vital Signs Last 8 Hrs Date Time Temp Pulse Resp B/P (MAP) Pulse Ox O2 Delivery O2 Flow Rate FiO2 12/09/17 08:19 36.6 69 16 172/94 (120) 98 Room Air Last Recorded Weight Weight (Kilograms): 108.000 Physical Exam GENERAL: Middle-aged male, AAA x 3, pleasant, healthy-appearing, not in any distress. NECK: Supple, no JVD. RESPIRATORY: Normal breathing efforts, no accessory muscle use, clear to auscultation bilaterally, no wheezes or rales. CARDIOVASCULAR: S1, S2 normal, rate rhythm regular. EXTREMITY: No lower extremity edema NEURO: speech fluent. PSYCHIATRY: Normal mood and judgment Family History Patient denies any family history of chronic kidney disease or end-stage renal disease. Social History Smoking Status: Never smoker Smokeless Tobacco Use: No Alcohol Use: none Drug Use: none Marital Status: Housing Status: lives with family Occupation: unemployed Laboratory Results Past 24 Hours 12/09/17 06:27 Test 12/09/17 06:27 Anion Gap 5.0 mmol/L (3-11) Est Creatinine Clear Calc Drug Dose 43.4 ml/min Estimated GFR () 30.6 Estimated GFR (Non- 26.4 BUN/Creatinine Ratio 11.5 (10-20) Calcium Level 8.8 mg/dl (8.5-10.1) Allergies Coded Allergies: Erythromycin (Verified Allergy, Mild, GI SYMPTOMS, 12/03/17) Omeprazole (Verified Allergy, Mild, GI SYMPTOMS, 12/03/17) Trazodone (Verified Allergy, Mild, GI SYMPTOMS, 12/03/17) Ziprasidone (Verified Allergy, Mild, GI SYMPTOMS, 12/03/17) Medications Current Inpatient Medications Medications (Trade) Dose Ordered Sig/Sanjiv Route Start Time Stop Time Status Last Admin Dose Admin Acetaminophen (Tylenol Tab) 650 mg Q4H PRN PO 12/03/17 22:45 01/02/18 22:44 12/05/17 05:07 650 MG Ondansetron HCl (Zofran Inj) 4 mg Q6H PRN IV 12/03/17 22:45 01/02/18 22:44 12/05/17 19:36 4 MG Atorvastatin Calcium (Lipitor Tab) 10 mg DAILY PO 12/05/17 09:00 01/04/18 08:59 12/09/17 07:53 10 MG Clonazepam (Klonopin Tab) 1 mg BID PRN PO 12/04/17 10:30 01/03/18 10:29 12/08/17 21:04 1 MG Metoprolol Tartrate (Lopressor Tab) 100 mg BID PO 12/04/17 21:00 01/03/18 20:59 12/09/17 07:53 100 MG Naloxone HCl (Narcan Inj) 0.4 mg Q1H PRN IV 12/04/17 10:45 01/03/18 10:44 Venlafaxine HCl (effeXOR EXTENDED REL CAP) 150 mg DAILY PO 12/05/17 09:00 01/04/18 08:59 12/09/17 07:51 150 MG Heparin Sodium (Porcine) (Heparin Sq 5000 Unit/0.5ml) 5,000 unit Q12 SQ 12/04/17 21:00 01/03/18 20:59 12/08/17 21:04 5,000 UNIT Oxycodone HCl (Roxicodone Immediate Rel Tab) @ Q4H PRN PO 12/04/17 11:45 12/18/17 11:44 12/08/17 23:27 10 MG Sodium Biphosphate/ Sodium Phosphate (Fleet Enema) 132 ml DAILY PRN TN 12/04/17 11:45 01/03/18 11:44 Senna/Docusate Sodium (Senokot S Tab) 1 tab BID PO 12/04/17 21:00 01/03/18 20:59 12/09/17 07:54 1 TAB Polyethylene (Miralax Powder Packet) 17 gm DAILY PO 12/06/17 09:00 01/05/18 08:59 12/08/17 08:16 17 GM Ranitidine HCl (zANTac TAB) 150 mg BID PO 12/07/17 09:00 01/03/18 10:29 12/09/17 07:53 150 MG Sucralfate (Carafate Tab) 1 gm QID PO 12/06/17 21:00 01/05/18 20:59 12/09/17 07:54 1 GM Dexamethasone (Decadron Tab) 4 mg BID PO 12/08/17 21:00 01/07/18 20:59 12/09/17 07:50 4 MG Nifedipine (Procardia Xl Tab) 30 mg QAM PO 12/09/17 09:00 01/08/18 08:59 12/09/17 08:11 30 MG Sodium Polystyrene Sulfonate (Kayexalate Susp) 15 gm NOW STAT PO 12/09/17 08:41 12/09/17 08:42 UNV Impression 47-year-old gentlemen with acute kidney injury in the setting of recent back surgery, possible hypotension in the setting of opiate use for back pain and volume depletion with poor p.o. intake. Records from [facility] showed urinalysis with hyaline cast and relatively soft blood pressure. Repeat urinalysis here was negative for hematuria, proteinuria pyuria. No NSAID exposure or recent antibiotic use. Blood pressure has been relatively stable here. Renal ultrasound was unremarkable for postrenal obstruction. Creatinine was 0.7 on 12/03/17, rapidly increased to 2.5 on 12/05/2017 and continued to rise rapidly and increased to 3.4 this morning. Rapid rise in creatinine in the setting possible hypotension and volume depletion, most consistent with pre renal vs ATN. He has been non-oliguric, electrolyte acceptable. Blood pressure relatively stable. Recommendations --renal function The continues to improve, patient has been having adequate p.o. intake, decent urine output, blood pressure stable. --low K diet --renal panel in am --if renal function continues to improve, hopefully will be able to discharge tomorrow with outpatient lab monitoring within 2-3 days, following up with his primary care physician or a plumber supervisor locally in [facility] if patient prefers Will follow
[2017-12-09 14:58] VITALS: BP 170/94; PULSE 73; TEMP 36.7; O2SAT 97
[2017-12-09] MEDS: OXYCODONE HCL IR 5 MG TAB (IMMEDIATE RELEASE) PO PRN ×2 (18:25→23:56)
[2017-12-09] MEDS: CLONAZEPAM 1 MG TAB PO PRN (21:14)
--- NOTE | 2017-12-09 21:19 | Progress Note ---
Subjective Date of Service: Dec 09, 2017. Subjective Pt evaluation today including: conversation w/ patient, physical exam, chart review, lab review, conversation w/ clinical science consultant (nephrology) Pain: back pain is minimal PO Intake: normal Voiding: no voiding problems feels good left leg complaints resolved anxious to go home will need ride back to [place] - cousin can't get him Problem List Medical Problems: (1) Anxiety Status: Chronic (2) Low back pain Status: Acute Review of Systems Constitutional: No fever, No chills Respiratory: No shortness of breath Cardiac: No chest pain Abdomen: No pain, No diarrhea, No constipation Musculoskeletal: No joint pain Objective Vital Signs Date Time Temp Pulse Resp B/P (MAP) Pulse Ox O2 Delivery O2 Flow Rate FiO2 12/09/17 20:00 Room Air 12/09/17 16:00 Room Air 12/09/17 14:58 36.7 73 18 170/94 (119) 97 Room Air 12/09/17 08:19 36.6 69 16 172/94 (120) 98 Room Air 12/09/17 08:00 Room Air 12/09/17 00:20 97 Room Air 12/08/17 23:40 36.6 69 19 176/96 (122) 99 Room Air Physical Exam General Appearance: no apparent distress, + pertinent finding (looks great) ENT: pharynx normal Neck: no JVD Respiratory/Chest: lungs clear, no respiratory distress, no accessory muscle use Cardiovascular: regular rate, rhythm, no gallop, no murmur Abdomen: normal bowel sounds, non tender, soft, no organomegaly Extremities: no pedal edema Neurologic/Psychiatric: no motor/sensory deficits, alert, oriented x 3 Comments: musculo - NO tenderness over left trochanteric bursal region Laboratory Results Last 24 Hours Test 12/09/17 06:27 Sodium Level 140 mmol/L Potassium Level 5.5 mmol/L Chloride Level 110 mmol/L Carbon Dioxide Level 26 mmol/L Anion Gap 5.0 mmol/L Blood Urea Nitrogen 32 mg/dl Creatinine 2.77 mg/dl Est Creatinine Clear Calc Drug Dose 43.4 ml/min Estimated GFR () 30.6 Estimated GFR (Non- 26.4 BUN/Creatinine Ratio 11.5 Random Glucose 109 mg/dl Calcium Level 8.8 mg/dl Assessment and Plan 47yo male with: 1. toxic encephalopathy - resolved, has not recurred. 2. lumbar back pain in the setting of recent lumbar laminectomy and L4-5 disc removal with fusion by Dr. Mock - 11/29/17 - [facility] [place] - marked improvement with use of IV decadron. Taper decadron to 4mg daily. Then can d/c home for 2-3 more days then stop. 3. left hip pain - hip x-rays wnl. Suspect that the pain was referred pain from the lumbar spine. Cont steroids. Much improved. 4. acute kidney injury - likely due to ATN in setting of poor oral intake post- op at home. He could have had transient hypotension post-op as well but this would be difficult to prove. Records obtained from [facility] - on 12/03 his urine micro showed hyaline casts. urine eosinophils negative. renal u/s w/o obstruction. appreciate nephrology consult. avoid nephrotoxins. creatinine again improved today making copious urine treat elevated K BMP in am 5. 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 MRI findings could be due to such. 6. ADD, other mood d/o - noted; continue home meds. Effexor increased to 150mg once daily earlier this admission. 7. DVT proph - heparin. 8. FEN - BMP in am. Diet as tolerated. 9. mild acute blood loss anemia from recent back surgery - H/H have been stable. 10. hyperkalemia - due to COLE - kayexalate 15gm x 1. Repeat BMP am. PT, OT consults requested and cleared for home by them hopefully d/c tomorrow if creatinine is improved again and electrolytes are stable Continued [facility] stay due to: other (acute kidney injury) Discharge planning: home
[2017-12-09 23:37] VITALS: BP 141/78; PULSE 73; TEMP 36.4; O2SAT 99
[2017-12-10 06:23] LABS: CALCIUM 8.8 mg/dl (8.5-10.1); CREATININE 2.74 mg/dl (0.60-1.40)
[2017-12-10 07:16] VITALS: BP 155/82; PULSE 67; TEMP 36.7; O2SAT 99
[2017-12-10] MEDS: METOPROLOL TARTRATE 100 MG TAB PO SCH ×2 (08:10→22:06)
[2017-12-10] MEDS: POLYETHYLENE (MIRALAX) 17 GM PACK PO SCH (08:10)
[2017-12-10] MEDS: RANITIDINE HCL 150 MG TAB PO SCH ×2 (08:10→22:06)
[2017-12-10] MEDS: DOCUSATE SODIUM/SENNA 50/8.6MG TAB PO SCH ×2 (08:10→22:06)
[2017-12-10] MEDS: VENLAFAXINE HCL XR 75 MG CAPXR PO SCH (08:11)
[2017-12-10] MEDS: SUCRALFATE 1 GM TAB PO SCH ×4 (08:11→22:06)
[2017-12-10] MEDS: ATORVASTATIN 10 MG TAB PO SCH (08:11)
[2017-12-10] MEDS: DEXAMETHASONE 4 MG TAB PO SCH (08:11)
[2017-12-10] MEDS: NIFEdipine 30 MG CR TAB PO SCH (08:11)
[2017-12-10] MEDS: HEPARIN SOD 5000 UNIT/0.5 ML CARP SQ SCH ×2 (08:12→21:00)
[2017-12-10] MEDS: OXYCODONE HCL IR 5 MG TAB (IMMEDIATE RELEASE) PO PRN ×2 (08:17→16:47)
[2017-12-10] MEDS: ONDANSETRON INJ 2 MG/ML 2 ML VIAL IV PRN (10:53)
--- NOTE | 2017-12-10 11:21 | Hospitalist Progress Note ---
Hospitalist Progress Note Date of Service Dec 10, 2017. Subjective Pt evaluation today including: conversation w/ patient, conversation w/ lead sales consultant (Nephrology) Voiding: no voiding problems Patient reports having 7.5/10 headache in the bilateral occipital region since waking up this morning. Reports he did not get much sleep at all last night due to his roommate having issues. His lower back and left hip pain are significantly improved since being on steroids. He is making plenty of urine. Constitutional: No fever All Other Systems: Reviewed and Negative Objective Vital Signs Date Time Temp Pulse Resp B/P (MAP) Pulse Ox O2 Delivery O2 Flow Rate FiO2 12/10/17 08:45 Room Air 12/10/17 07:16 36.7 67 18 155/82 (106) 99 Room Air 12/10/17 00:30 Room Air 12/09/17 23:37 36.4 73 20 141/78 (99) 99 Room Air 12/09/17 20:00 Room Air 12/09/17 16:00 Room Air 12/09/17 14:58 36.7 73 18 170/94 (119) 97 Room Air Physical Exam General Appearance: WD/WN, no apparent distress (Sitting on side of the bed) Eyes: normal inspection, PERRL, EOMI, sclerae normal ENT: hearing grossly normal, pharynx normal Neck: supple, trachea midline, + pertinent finding (No tenderness to palpation in bilateral neck and occipital regions, actually, the patient reports his pain improved with manipulation there) Respiratory/Chest: lungs clear, normal breath sounds, no respiratory distress, no accessory muscle use Cardiovascular: regular rate, rhythm, no edema, no gallop, no murmur Abdomen: normal bowel sounds, non tender, soft Extremities: non-tender, normal inspection, no pedal edema, no calf tenderness Neurologic/Psychiatric: no motor/sensory deficits, alert, normal mood/affect, oriented x 3 Skin: normal color (Lumbar incision with estefany in place with small scab centrally, no drainage, no hematoma or surrounding erythema.), warm/dry, no rash Lymphatic: no adenopathy Laboratory Results Last 24 Hours Test 12/10/17 05:24 Sodium Level 139 mmol/L Potassium Level 5.0 mmol/L Chloride Level 106 mmol/L Carbon Dioxide Level 27 mmol/L Anion Gap 6.0 mmol/L Blood Urea Nitrogen 35 mg/dl Creatinine 2.74 mg/dl Est Creatinine Clear Calc Drug Dose 43.9 ml/min Estimated GFR () 31.0 Estimated GFR (Non- 26.8 BUN/Creatinine Ratio 12.8 Random Glucose 116 mg/dl Calcium Level 8.8 mg/dl Assessment and Plan This patient is a 47-year-old male [place] [facility] [place] likely secondary to medication use, status post L4 laminectomy with L4-5 fusion on 11/29. Now with COLE likely secondary to ATN. Acute encephalopathy: Concerns for postoperative infection due to subjective fevers and one rectal temp of 38.0 in the ER and there. He was started on Zosyn and vancomycin and transferred here. CT of the head there showed some hypodensities in the frontal lobe and thalamus-etiology of encephalopathy includes CVA, drug ingestion/overdose of opioids, and infection, as well as pain and/or constipation. He was given Narcan with good response as per the cousin in the ER. He has not had any further fever here. That low-grade temp could have been from atelectasis. Lactate, pro calcitonin both negative. MRI of the brain with no significant findings. Encephalopathy now completely resolved Toxic encephalopathy - resolved, has not recurred. Intractable acute lumbar back pain in the setting of recent lumbar laminectomy and L4-5 disc removal with fusion by Dr. Mock - 11/29/[address] [place] [facility] [place] marked improvement with use of IV decadron. Tapered to Decadron to 4mg daily. Then can d/c home for 2-3 more days then stop. Left hip pain - hip x-rays wnl. Suspect that the pain was referred pain from the lumbar spine. Cont steroids. Much improved. Acute kidney injury/hyperkalemia likely due to ATN in setting of poor oral intake post-op at home. He could have had transient hypotension post-op as well but this would be difficult to prove. Records obtained from [facility] - on 12/03 his urine micro showed hyaline casts. Creatinine only minimally improved from yesterday now at 2.74, potassium is improved today urine eosinophils negative. renal u/s w/o obstruction. appreciate nephrology consult. avoid nephrotoxins. 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 MRI findings could be due to such. ADD/Depression/history of TBI/anxiety/history of alcoholism-exacerbated by current situation with pain - noted; continue home meds. Effexor increased to 150mg once daily earlier this admission. -Continue clonazepam 1 mg p.o. twice daily as needed Mild acute blood loss anemia from recent back surgery - H/H have been stable. Headache-meets features of tension type headache, had another one similar earlier this admission that improved. Has not had much sleep. -Continue pain meds as needed for headache -Encouraged rest Hypertension-BP is elevated after discharge especially with holding lisinopril, now improved after starting nifedipine -Continue home metoprolol tartrate 100 mg p.o. twice daily -Discontinued lisinopril due to COLE -Continue new nifedipine Prophylaxis-heparin subcutaneous Disposition-PT/OT cleared for discharge home, hopefully d/c tomorrow if creatinine is improved again and electrolytes are stable-will need assistance from case management for transportation to home
--- NOTE | 2017-12-10 11:34 | Nephrology Progress Note ---
Nephrology Progress Note Date of Service Dec 10, 2017. Chief Complaint Follow-up for acute kidney injury. Horacio Mathur was seen and examined in his room this morning. Has been otherwise feeling well except continues to have occasional back pain and was not able to sleep well at night. Creatinine has been improving but very slowly, 2.7 this morning, electrolyte acceptable. Blood pressure and volume status acceptable Review of Systems A complete review of systems was performed. Pertinent positives are noted above. All other systems are negative. Vital Signs Last 8 Hrs Date Time Temp Pulse Resp B/P (MAP) Pulse Ox O2 Delivery O2 Flow Rate FiO2 12/10/17 08:45 Room Air 12/10/17 07:16 36.7 67 18 155/82 (106) 99 Room Air Last Recorded Weight Weight (Kilograms): 108.000 Physical Exam GENERAL: Middle-aged male, AAA x 3, pleasant, healthy-appearing, not in any distress. NECK: Supple, no JVD. RESPIRATORY: Normal breathing efforts, no accessory muscle use, clear to auscultation bilaterally, no wheezes or rales. CARDIOVASCULAR: S1, S2 normal, rate rhythm regular. EXTREMITY: No lower extremity edema NEURO: speech fluent. PSYCHIATRY: Normal mood and judgment Family History Patient denies any family history of chronic kidney disease or end-stage renal disease. Social History Smoking Status: Never smoker Smokeless Tobacco Use: No Alcohol Use: none Drug Use: none Marital Status: Housing Status: lives with family Occupation: unemployed Laboratory Results Past 24 Hours 12/10/17 05:24 Test 12/10/17 05:24 Anion Gap 6.0 mmol/L (3-11) Est Creatinine Clear Calc Drug Dose 43.9 ml/min Estimated GFR () 31.0 Estimated GFR (Non- 26.8 BUN/Creatinine Ratio 12.8 (10-20) Calcium Level 8.8 mg/dl (8.5-10.1) Allergies Coded Allergies: Erythromycin (Verified Allergy, Mild, GI SYMPTOMS, 12/03/17) Omeprazole (Verified Allergy, Mild, GI SYMPTOMS, 12/03/17) Trazodone (Verified Allergy, Mild, GI SYMPTOMS, 12/03/17) Ziprasidone (Verified Allergy, Mild, GI SYMPTOMS, 12/03/17) Medications Current Inpatient Medications Medications (Trade) Dose Ordered Sig/Sanjiv Route Start Time Stop Time Status Last Admin Dose Admin Acetaminophen (Tylenol Tab) 650 mg Q4H PRN PO 12/03/17 22:45 01/02/18 22:44 12/05/17 05:07 650 MG Ondansetron HCl (Zofran Inj) 4 mg Q6H PRN IV 12/03/17 22:45 01/02/18 22:44 12/10/17 10:53 4 MG Atorvastatin Calcium (Lipitor Tab) 10 mg DAILY PO 12/05/17 09:00 01/04/18 08:59 12/10/17 08:11 10 MG Clonazepam (Klonopin Tab) 1 mg BID PRN PO 12/04/17 10:30 01/03/18 10:29 12/09/17 21:14 1 MG Metoprolol Tartrate (Lopressor Tab) 100 mg BID PO 12/04/17 21:00 01/03/18 20:59 12/10/17 08:10 100 MG Naloxone HCl (Narcan Inj) 0.4 mg Q1H PRN IV 12/04/17 10:45 01/03/18 10:44 Venlafaxine HCl (effeXOR EXTENDED REL CAP) 150 mg DAILY PO 12/05/17 09:00 01/04/18 08:59 12/10/17 08:11 150 MG Heparin Sodium (Porcine) (Heparin Sq 5000 Unit/0.5ml) 5,000 unit Q12 SQ 12/04/17 21:00 01/03/18 20:59 12/10/17 08:12 5,000 UNIT Oxycodone HCl (Roxicodone Immediate Rel Tab) @ Q4H PRN PO 12/04/17 11:45 12/18/17 11:44 12/10/17 08:17 5 MG Sodium Biphosphate/ Sodium Phosphate (Fleet Enema) 132 ml DAILY PRN MT 12/04/17 11:45 01/03/18 11:44 Senna/Docusate Sodium (Senokot S Tab) 1 tab BID PO 12/04/17 21:00 01/03/18 20:59 12/10/17 08:10 1 TAB Polyethylene (Miralax Powder Packet) 17 gm DAILY PO 12/06/17 09:00 01/05/18 08:59 12/08/17 08:16 17 GM Ranitidine HCl (zANTac TAB) 150 mg BID PO 12/07/17 09:00 01/03/18 10:29 12/10/17 08:10 150 MG Sucralfate (Carafate Tab) 1 gm QID PO 12/06/17 21:00 01/05/18 20:59 12/10/17 08:11 1 GM Nifedipine (Procardia Xl Tab) 30 mg QAM PO 12/09/17 09:00 01/08/18 08:59 12/10/17 08:11 30 MG Dexamethasone (Decadron Tab) 4 mg DAILY PO 12/10/17 09:00 01/07/18 20:59 12/10/17 08:11 4 MG Impression 47-year-old gentlemen with acute kidney injury in the setting of recent back surgery, possible hypotension in the setting of opiate use for back pain and volume depletion with poor p.o. intake. Records from [facility] showed urinalysis with hyaline cast and relatively soft blood pressure. Repeat urinalysis here was negative for hematuria, proteinuria pyuria. No NSAID exposure or recent antibiotic use. Blood pressure has been relatively stable here. Renal ultrasound was unremarkable for postrenal obstruction. Creatinine was 0.7 on 12/03/17, rapidly increased to 2.5 on 12/05/2017 and continued to rise rapidly and increased to 3.4 this morning. Rapid rise in creatinine in the setting possible hypotension and volume depletion, most consistent with pre renal vs ATN. He has been non-oliguric, electrolyte acceptable. Blood pressure relatively stable. Recommendations --renal function The continues to improve but improvement has been pretty slow, creatinine 2.7 this morning patient has been having adequate p.o. intake, decent urine output, blood pressure stable. Potassium normalized, currently on low-potassium diet --renal panel in am --if renal function continues to improve or stays stable, hopefully will be able to discharge tomorrow with outpatient lab monitoring within 2-3 days, following up with his primary care physician or a [employer] [facility] shop locally in [facility] if patient prefers Will follow
[2017-12-10] MEDS: CLONAZEPAM 1 MG TAB PO PRN (11:36)
[2017-12-10 16:00] VITALS: BP 149/93; PULSE 80; TEMP 36.4; O2SAT 96
[2017-12-10] MEDS: ACETAMINOPHEN 325 MG TAB PO PRN (16:44)
[2017-12-10 22:02] VITALS: BP 140/91; PULSE 81
[2017-12-11 00:14] VITALS: BP 135/80; PULSE 68; TEMP 36.8; O2SAT 93
[2017-12-11 06:47] LABS: CALCIUM 8.8 mg/dl (8.5-10.1); CREATININE 2.66 mg/dl (0.60-1.40)
[2017-12-11 07:47] VITALS: BP 121/73; PULSE 72; TEMP 36.9; O2SAT 96
[2017-12-11] MEDS: METOPROLOL TARTRATE 100 MG TAB PO SCH (08:47)
[2017-12-11] MEDS: NIFEdipine 30 MG CR TAB PO SCH (08:47)
[2017-12-11] MEDS: RANITIDINE HCL 150 MG TAB PO SCH (08:47)
[2017-12-11] MEDS: DOCUSATE SODIUM/SENNA 50/8.6MG TAB PO SCH (08:47)
[2017-12-11] MEDS: ATORVASTATIN 10 MG TAB PO SCH (08:47)
[2017-12-11] MEDS: SUCRALFATE 1 GM TAB PO SCH ×2 (08:48→12:54)
[2017-12-11] MEDS: VENLAFAXINE HCL XR 75 MG CAPXR PO SCH (08:48)
[2017-12-11] MEDS: DEXAMETHASONE 4 MG TAB PO SCH (08:48)
[2017-12-11] MEDS: HEPARIN SOD 5000 UNIT/0.5 ML CARP SQ SCH (08:50)
[2017-12-11] MEDS: POLYETHYLENE (MIRALAX) 17 GM PACK PO SCH (08:51)
[2017-12-11] MEDS: ONDANSETRON INJ 2 MG/ML 2 ML VIAL IV PRN (11:15)
[2017-12-11 12:06] VITALS: BP 125/87; PULSE 75; TEMP 36.4; O2SAT 95
[2017-12-11] MEDS ORDERED: DXM4 PO (12:06)
[2017-12-11] MEDS ORDERED: ACET-1047 PO (12:06)
[2017-12-11] MEDS ORDERED: VENL150C PO (12:06)
[2017-12-11] MEDS ORDERED: NIFE30TA2 PO (12:06)
[2017-12-11] MEDS ORDERED: PROM25TA9 PO (12:06)
--- NOTE | 2017-12-11 12:13 | Discharge Instructions ---
Discharge Instructions Date of Service Dec 11, 2017. Admission Reason for Admission: Altered Mental Status Discharge Discharge Diagnosis / Problem: Acute encephalopathy, Acute kidney injury Discharge Goals Goal(s): Improve disease control, Diagnostic testing, Therapeutic intervention Activity Recommendations Activity Limitations: resume your previous activity Exercise/Sports Limitations: as tolerated (as per Orthopedic Surgery Instructions post-operatively) Shower/Bathe: no limitations . Instructions / Follow-Up Instructions / Follow-Up Please finish out the dexamethasone for 2 more days for your back and hip pain. Please follow up with your Spine Surgeon-call for appointment. You developed kidney failure while you were here and this did improve, but is not completely back to normal yet. Please avoid taking any NSAIDs (ibuprofen, Aleve, Motrin, etc.). Please have your blood work checked on Wednesday prior to your visit with the [facility]. You should also follow up with your PCP within 1-2 weeks. Current Hospital Diet Patient's current hospital diet: Regular Diet, Low Potassium Diet (2g K) Discharge Diet Recommended Diet: Low Potassium Diet (2g K) Procedures Procedures Performed: Brain MRI Hip xray Chest xray Renal Ultrasound Pending Studies Studies pending at discharge: no Medical Emergencies . Who to Call and When: Medical Emergencies: If at any time you feel your situation is an emergency, please call 911 immediately. . Non-Emergent Contact Non-Emergency issues call your: Primary Care Provider, [facility] Call Non-Emergent contact if: you have a fever, temperature is above 100.5, your pain is not controlled, your pain is worsening, your pain is unusual for you, your pain is concerning you, wound has increased drainage, wound has increased redness, wound has increased pain, you have any medication questions . . "Provider Documentation" section prepared by Jossy Lizarraga. . VTE Core Measure Inpt VTE Proph given/why not?: Unfractionated heparin SQ
--- NOTE | 2017-12-11 12:22 | Discharge Summary ---
Discharge Summary Date of Service Dec 11, 2017. Discharge Summary Admission Date: Dec 03, 2017 at 21:14 Discharge Date: Dec 11, 2017 Discharge Disposition: Home Principal Diagnosis: Acute encephalopathy, intractable lower back pain, COLE Problems/Secondary Diagnoses: Acute toxic encephalopathy likely secondary to medication misuse Status post L4 laminectomy with L4-5 fusion COLE likely secondary to ATN Abnormal Head CT and Brain MRI Intractable acute lumbar back pain in the setting of recent lumbar laminectomy and L4-5 disc removal with fusion Left hip pain Hyperkalemia H/o TBI ADD Major Depressive disorder Anxiety disorder History of alcoholism Mild acute blood loss anemia from recent back surgery Tension type Headache Hypertension Immunizations: Have You Had Influenza Vaccine: Unknown History of Tetanus Vaccine?: Unknown History of Pneumococcal: Unknown History of Hepatitis B Vaccine: Unknown Procedures: MRI Brain Renal US CXR Left hip xray Consultations: Orthopedic Spine Surgery Nephrology Medication Reconciliation New Medications: Promethazine Hcl (Phenergan) 25 Mg Tab 25 MG PO Q6H PRN for Nausea, #12 TAB Venlafaxine Hcl (Effexor Xr) 150 Mg Cap 1 CAP PO DAILY for 30 Days, #30 CAP Acetaminophen (Mapap) 325 Mg Tab 650 MG PO Q4H PRN for Pain or Fever for 30 Days Dexamethasone (Dexamethasone) 4 Mg Tab 4 MG PO DAILY for 2 Days, #2 TAB Nifedipine (Procardia Xl Ext Rel) 30 Mg Tab 30 MG PO QAM for 30 Days, #30 TAB Continued Medications: Atorvastatin (Lipitor) 10 Mg Tab 10 MG PO DAILY Clonazepam (Klonopin) 1 Mg Tab 1 MG PO BID PRN for Anxiety/Agitation, TAB Metoprolol Tartrate (Lopressor) (Lopressor) 100 Mg Tab 100 MG PO BID for 30 Days, #60 TAB Ranitidine (Zantac) 300 Mg Tab 300 MG PO DAILY PRN for Indigestion, TAB Discontinued Medications: Cyclobenzaprine Hcl (Flexeril) 10 Mg Tab 1 TAB PO TID PRN for Muscle Spasms for 30 Days, #90 TAB Gabapentin (Gabapentin) 300 Mg Cap 300 MG PO TID for 30 Days Oxycodone HCl (Oxycodone HCl) 5 Mg Tab 5-10 MG PO q4-6 for 30 Days Venlafaxine Hcl (Venlafaxine Extended Rel) 75 Mg Cap 1 CAP PO DAILY for 90 Days, #90 CAP 3 Refills Discharge Exam Doing well, having some nausea and feels like he has to strain to have a BM and not much coming out. Back and hip pain much improved. Physical Exam General Appearance: WD/WN, no apparent distress (Sitting on side of the bed) Eyes: normal inspection, PERRL, EOMI, sclerae normal ENT: hearing grossly normal, pharynx normal Neck: supple, trachea midline Respiratory/Chest: lungs clear, normal breath sounds, no respiratory distress, no accessory muscle use Cardiovascular: regular rate, rhythm, no edema, no gallop, no murmur Abdomen: normal bowel sounds, non tender, soft Extremities: non-tender, normal inspection, no pedal edema, no calf tenderness Neurologic/Psychiatric: no motor/sensory deficits, alert, normal mood/affect, oriented x 3 Skin: normal color (Lumbar incision with estefany in place with small scab centrally, no drainage, no hematoma or surrounding erythema.), warm/dry, no rash Lymphatic: no adenopathy Review of Systems: Constitutional: No fever Eyes: No problem reported ENT: No problem reported Respiratory: No problem reported Cardiovascular: No problem reported Abdomen: + nausea, + constipation, No vomiting Musculoskeletal: + problem reported (as per HPI) Genitourinary - Male: No problem reported Neurologic: No problem reported Psychiatric: No problem reported Endocrine: No problem reported Hematologic / Lymphatic: No problem reported Integumentary: No problem reported Hospital Course This patient is a 47-year-old male presenting in transfer from [facility] for acute encephalopathy likely secondary to medication use, status post L4 laminectomy with L4-5 fusion on 11/29. He then developed COLE likely secondary to ATN. Acute encephalopathy: Concerns for postoperative infection due to subjective fevers and one rectal temp of 38.0 in the ER and there. He was started on Zosyn and vancomycin and transferred here. CT of the head there showed some hypodensities in the frontal lobe and thalamus-etiology of encephalopathy includes CVA, drug ingestion/overdose of opioids, and infection, as well as pain and/or constipation. He was given Narcan with good response as per the cousin in the ER. He has not had any further fever here. That low-grade temp could have been from atelectasis. Lactate, procalcitonin both negative. MRI of the brain with no significant findings. Encephalopathy now completely resolved Toxic encephalopathy - resolved, has not recurred. Intractable acute lumbar back pain in the setting of recent lumbar laminectomy and L4-5 disc removal with fusion by Dr. Mock - 11/29/17 - [facility] - marked improvement with use of IV decadron. Tapered to Decadron to 4mg daily. Then can d/c home for 2 more days then stop. Left hip pain - hip x-rays wnl. Suspect that the pain was referred pain from the lumbar spine. Cont steroids. Much improved. Acute kidney injury/hyperkalemia likely due to ATN in setting of poor oral intake post-op at home. He could have had transient hypotension post-op as well but this would be difficult to prove. Records obtained from [facility] - on 12/03 his urine micro showed hyaline casts. Creatinine continues to be improved from yesterday now down to 2.66, potassium is improved today to 3.8 (peak 6) urine eosinophils negative. renal u/s w/o obstruction. appreciate nephrology consult-plan to the [facility] labs Wednesday and close f/u as outpt with Nephrology in [facility] and with PCP avoid nephrotoxins. 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 MRI findings could be due to such. ADD/Depression/history of TBI/anxiety/history of alcoholism-exacerbated by current situation with pain - noted; continue home meds. Effexor increased to 150mg once daily earlier this admission. -Continue clonazepam 1 mg p.o. twice daily as needed Mild acute blood loss anemia from recent back surgery - H/H have been stable at 9.7. Check CBC as outpt on Wednesday Headache-meets features of tension type headache, had another one similar earlier this admission that improved. Has not had much sleep. Resolved -Continue tylenol as needed for headache -Encouraged rest Hypertension-BP is elevated after discharge especially with holding lisinopril, now improved after starting nifedipine -Continue home metoprolol tartrate 100 mg p.o. twice daily -Discontinued lisinopril due to COLE -Continue nifedipine on discharge -f/u with PCP Discharge to home today Total Time Spent: Greater than 30 minutes This includes examination of the patient, discharge planning, medication reconciliation, and communication with other providers. Discharge Instructions Please refer to the electronic Patient Visit Report (Discharge Instructions) for additional information. Follow-Up PCP within 1-2 weeks Nephrology within 1 week Ortho Spine within 1-2 weeks Check CBC, BMP on Wednesday Additional Copies To Travis Mock M.D.
[2017-12-11 12:32] VITALS: BP 125/87; PULSE 75; TEMP 36.4; O2SAT 95
[2017-12-11] MEDS: OXYCODONE HCL IR 5 MG TAB (IMMEDIATE RELEASE) PO PRN (12:55)
== END 2017-12-11 16:30 | disposition home or self-care (01) | DRG 917 ==
LOC: C.MED 21:14
PROVIDERS: ADMIT Hospitalist; ATTEND Family Medicine
DX: T42.6X1A Poisoning by other antiepileptic and sedative-hypnotic drugs, accidental (unintentional), initial encounter (principal); G92 Toxic encephalopathy; D62 Acute posthemorrhagic anemia; T40.2X1A Poisoning by other opioids, accidental (unintentional), initial encounter; F90.9 Attention-deficit hyperactivity disorder, unspecified type; F41.9 Anxiety disorder, unspecified; K21.9 Gastro-esophageal reflux disease without esophagitis; I10 Essential (primary) hypertension; E78.5 Hyperlipidemia, unspecified; Z98.1 Arthrodesis status; E87.5 Hyperkalemia; F10.21 Alcohol dependence, in remission; F32.9 Major depressive disorder, single episode, unspecified; G44.209 Tension-type headache, unspecified, not intractable; K59.00 Constipation, unspecified; I95.89 Other hypotension; Z98.890 Other specified postprocedural states; Z83.3 Family history of diabetes mellitus; Y92.019 Unspecified place in single-family (private) house as the place of occurrence of the external cause